=== PATIENT | female | born 1945 | race Caucasian/White ===

== ENCOUNTER → 2016-11-09 | Outpatient (CLI) | payer MEDICARE ==
--- NOTE | 2016-11-09 10:25 | US ---
EXAMINATION TYPE: US kidneys/renal and bladder DATE OF EXAM: 11/09/2016 9:51 AM COMPARISON: CT abdomen December 16, 2012. CLINICAL HISTORY: N18.3 Kidney Disease Stage 3. EXAM MEASUREMENTS: Right Kidney: 9.4 x 4.1 x 4.0 cm Left Kidney: 9.6 x 4.4 x 5.0 cm TECHNOLOGIST IMPRESSION: wnl Right Kidney: No hydronephrosis or masses seen Left Kidney: No hydronephrosis or masses seen Bladder: wnl Bilateral Jets seen: Yes There is no evidence for hydronephrosis at this point in time. No nephrolithiasis is seen. No cynthia s are identified on images saved. The urinary bladder is anechoic. Bilateral ureteral jets are seen . IMPRESSION: No hydronephrosis is evident bilaterally.
== END | disposition home or self-care (01) ==
LOC: RADUSWWP 09:26
PROVIDERS: ATTEND Family Medicine
DX: N18.3 Chronic kidney disease, stage 3 (moderate) (principal)
CPT/HCPCS: 76770

== ENCOUNTER → 2017-05-25 | Outpatient (CLI) | payer MEDICARE ==
--- NOTE | 2017-05-25 10:41 | MM ---
Reason for exam: additional evaluation requested from prior study. Last mammogram was performed 1 year ago. History: Patient is postmenopausal, has history of breast cancer at age 64, and is nulliparous. Family history of premenopausal breast cancer in mother at age 30. Benign MG stereo VAD BX RT of the right breast, December 01, 2015. Malignant right breast needle localzation of the right breast, May 20, 2010. Lumpectomy of the right breast, May 20, 2010. Malignant right mammotome panel of the right breast, May 09, 2010. Radiation therapy of the right breast, 2009. Took estrogen for 2 years beginning at age 54. Took progesterone beginning at age 54. Taking antineoplastic for 2 years beginning at age 65. Physical Findings: Nurse did not find any significant physical abnormalities on exam. MG 3D Diag Mammo W/Cad JOSELYN Bilateral CC and MLO view(s) were taken. Prior study comparison: May 24, 2016, bilateral MG 3d diag mammo w/cad JOSELYN. November 25, 2015, right breast MG 3d diag mammo w/cad RT. There are scattered fibroglandular densities. No suspicious abnormality. Post therapy change in the right breast. No significant new findings when compared with previous films. These results were verbally communicated with the patient and result sheet given to the patient on 05/25/17. ASSESSMENT: Benign, BI-RAD 2 RECOMMENDATION: Follow-up diagnostic mammogram of both breasts in 1 year.
--- NOTE | 2017-05-25 12:27 | BD ---
EXAMINATION TYPE: MG DEXA axial skeleton. DATE OF EXAM: 05/25/2017 COMPARISON: 05.24.2016 CLINICAL HISTORY: Z79.80 POST MENOPAUSAL WITH HRT, N95.1 POST MENOPAUSAL SYMPTOM Height: 63 Weight: 171 FRAX RISK QUESTIONS: Alcohol (3 or more units per day): NO Family History (Parent hip fracture): NO BREAKS Glucocorticoids (More than 3mos): YES (Ex: prednisone, prednisolone, methylprednisolone, dexamethasone, and hydrocortisone). History of Fracture in Adulthood: NO Secondary Osteoporosis: NO 1. Type 1 Diabetes: NO 2. Hyperthyroidism: NO 3. Menopause before 45: NO 4. Malnutrition: NO 5. Chronic liver disease: NO Rheumatoid Arthritis: NO Current Tobacco Use: NO RISK FACTORS HISTORY OF: Family History of Osteoporosis: YES HER PARENTS, NO BROKEN HIPS Active: YES Diet low in dairy products/other sources of calcium: NO Postmenopausal woman: 51 Take estrogen and/or progesterone medications: TOOK HORMONE REPLACEMENTS FOR 2 YRS ONLY....THEN THE B REAST CA Hyperparathyroidism: NO Adrenal Insufficiency: NO MEDICATIONS: Prednisone or other steroids: INHALERS FOR COPD How Lon-7 YRS Thyroid Medications: SYNTHROID 0.1 How Long: OVER 10 YRS Additional Medications: HX OF RADIATION, SYMBACORT,SPIRVIA , PRO AIR,STATIN FOR CHOLESTEROL, BP MEDS, VIT D AND CALCIUM , Additional History: HX OF RT BREAST CANCER, COPD, EXAM MEASUREMENTS: Bone mineral densitometry was performed using the [email or web address] System. Bone mineral density as measured about the Lumbar spine is: ----- L1-L4(G/cm2): 1.306 T Score Values are as follows: ----- L1: 1.0 ----- L2: 2.0 ----- L3: -0.1 ----- L4: 1.0 ----- L1-L4: 1.1 Bone mineral density has: Increased 6.3% since study of: 05.24.2016 Bone mineral density about the R hip (g/cm2): 0.804 Bone mineral density about the L hip (g/cm2): 0.789 T Score values are as follows: -----R Neck: -1.6 -----L Neck: -1.8 -----R Total: -1.6 -----L Total: -1.7 Bone mineral density has: Increased 1.0% since study of: 05.24.2016 FRAX %'S THERE IS A 16.9% CHANCE FOR A MAJOR OSTEOPOROTIC FX AND A 3.5% CHANCE FOR A HIP FX..... PROBABILITY IN 10 YRS TIME. IMPRESSION: Osteopenia (T Score between -2.5 and -1 as noted by T score values There is slightly increased risk of fracture and the patient may be considered for treatment. Re-Screen 2-5 years FOR BOTH OF HER HIPS ONLY. NOTE: T-SCORE=SD OF THE YOUNG ADULT MEAN.
== END | disposition home or self-care (01) ==
LOC: RADMAMWWP 09:43
PROVIDERS: ATTEND Internal Medicine Hematology & Oncology
DX: C50.919 Malignant neoplasm of unspecified site of unspecified female breast (principal); M85.80 Other specified disorders of bone density and structure, unspecified site; N95.1 Menopausal and female climacteric states; Z85.3 Personal history of malignant neoplasm of breast; Z79.890 Hormone replacement therapy
CPT/HCPCS: 77080; G0204; G0279

== ENCOUNTER → 2018-05-29 | Outpatient (CLI) | payer MEDICARE ==
--- NOTE | 2018-05-29 10:43 | MM ---
Reason for exam: additional evaluation requested from prior study. Last mammogram was performed 1 year ago. History: Patient is postmenopausal, has history of breast cancer at age 64, and is nulliparous. Family history of premenopausal breast cancer in mother at age 30. Benign MG stereo VAD BX RT of the right breast, December 01, 2015. Malignant right breast needle localzation of the right breast, May 20, 2010. Lumpectomy of the right breast, May 20, 2010. Malignant right mammotome panel of the right breast, May 09, 2010. Radiation therapy of the right breast, 2009. Took estrogen for 2 years beginning at age 54. Took progesterone beginning at age 54. Taking antineoplastic for 2 years beginning at age 65. Physical Findings: Nurse did not find any significant physical abnormalities on exam. MG 3D Diag Mammo W/Cad JOSELYN Bilateral CC and MLO view(s) were taken. XCCM view(s) were taken of the right breast. Prior study comparison: May 25, 2017, bilateral MG 3d diag mammo w/cad JOSELYN. May 24, 2016, bilateral MG 3d diag mammo w/cad JOSELYN. The breast tissue is heterogeneously dense. This may lower the sensitivity of mammography. Finding: There are grouped/clustered coarse calcifications in the right breast. Right lumpectomy surgical changes. No significant changes in finding since May 25, 2017 and May 24, 2016. These results were verbally communicated with the patient and result sheet given to the patient on 05/29/18. ASSESSMENT: Benign, BI-RAD 2 RECOMMENDATION: Routine screening mammogram of both breasts in 1 year.
== END | disposition home or self-care (01) ==
LOC: RADMAMWWP 08:46
PROVIDERS: ATTEND Family Medicine
DX: Z08 Encounter for follow-up examination after completed treatment for malignant neoplasm (principal); Z85.3 Personal history of malignant neoplasm of breast
CPT/HCPCS: 77066; G0279; 77062

== ENCOUNTER → 2019-06-04 | Outpatient (CLI) | payer MEDICARE ==
--- NOTE | 2019-06-04 09:14 | BD ---
EXAMINATION TYPE: Axial Bone Density DATE OF EXAM: 06/04/2019 COMPARISON: 2017 CLINICAL HISTORY: M 89.9 Height: 5 FT 3 IN Weight: 167 FRAX RISK QUESTIONS: RISK FACTORS HISTORY OF: Active: SOMEWHAT Postmenopausal woman: AROUND 46 NOT REALLY SURE Take estrogen and/or progesterone medications: TOOK HRT [age] Poor Health: SOMEWHAT MEDICATIONS: Thyroid Medications: YES Which medication: LEVOTHYTOXINE How Long: OVER 25 YEARS Additional Medications: LEVOTHYROXINE, ATORVASTATIN, LISINOPRIL, CALCITRIOL,CYMBICORT, PROAIR, ATENDR ITZ, ALBUTEROL, INHALER, VIT D3, FISH OIL Additional History: BREAST CANCER RADIATION EXAM MEASUREMENTS: Bone mineral densitometry was performed using the [employer] System. Bone mineral density as measured about the Lumbar spine is: ----- L1-L4(G/cm2): 1.323 T Score Values are as follows: ----- L2: 2.3 ----- L3: 0.4 ----- L4: 0.8 ----- L1-L4: 1.2 Bone mineral density has: INCREASED 0.8 % since study of: 2017 Bone mineral density about the R hip (g/cm2): 0.785 Bone mineral density about the L hip (g/cm2): 0.765 T Score values are as follows: -----R Neck: -1.8 -----L Neck: -2.0 -----R Total: -1.7 -----L Total: -1.8 Bone mineral density has: DECREASED -1.6 % since study of: 2017 IMPRESSION: Osteopenia (T Score between -2.5 and -1). There is slightly increased risk of fracture and the patient may be considered for treatment. Re-Screen 2-5 years. NOTE: T-SCORE=SD OF THE YOUNG ADULT MEAN.
--- NOTE | 2019-06-05 14:20 | MM ---
Reason for exam: screening (asymptomatic). Last mammogram was performed 1 year ago. History: Patient is postmenopausal, has history of breast cancer at age 64, and is nulliparous. Family history of premenopausal breast cancer in mother at age 30. Benign MG stereo VAD BX RT of the right breast, December 01, 2015. Malignant right breast needle localzation of the right breast, May 20, 2010. Lumpectomy of the right breast, May 20, 2010. Malignant right mammotome panel of the right breast, May 09, 2010. Radiation therapy of the right breast, 2009. Took estrogen for 2 years beginning at age 54. Took progesterone beginning at age 54. Taking antineoplastic for 2 years beginning at age 65. Physical Findings: A clinical breast exam by your physician is recommended on an annual basis and results should be correlated with mammographic findings. MG 3D Screening Mammo W/Cad Bilateral CC and MLO view(s) were taken. XCCM view(s) were taken of the right breast. Prior study comparison: May 29, 2018, bilateral MG 3d diag mammo w/cad JOSELYN. May 25, 2017, bilateral MG 3d diag mammo w/cad JOSELYN. The breast tissue is heterogeneously dense. This may lower the sensitivity of mammography. No suspicious abnormality. Right post therapy change. No significant changes when compared with prior studies. ASSESSMENT: Benign, BI-RAD 2 RECOMMENDATION: Routine screening mammogram of both breasts in 1 year.
== END | disposition home or self-care (01) ==
LOC: RADMAMWWP 07:25
PROVIDERS: ATTEND Family Medicine
DX: Z12.31 Encounter for screening mammogram for malignant neoplasm of breast (principal); M85.80 Other specified disorders of bone density and structure, unspecified site
CPT/HCPCS: 77063; 77067; 77080

== ENCOUNTER 2019-09-02 11:11 | Inpatient (IN) | payer MEDICARE ==
[2019-09-02] MEDS ORDERED: HYDROmorphone 1 MG/ML 1 ML SYRINGE IVP STA (11:23)
[2019-09-02] MEDS ORDERED: ONDANSETRON 4 MG/2 ML VIAL IVP STA (11:23)
--- NOTE | 2019-09-02 11:28 | ED ---
General Adult HPI - General Chief complaint: Fall Stated complaint: Ankle/Lower Leg injury Time Seen by Provider: 09/02/19 11:11 Source: EMS, RN notes reviewed, old records reviewed Mode of arrival: EMS Limitations: no limitations - History of Present Illness Initial comments: This is a 74-year-old female who presents emergency Department with pain to the right ankle. Patient states she was walking her dog and got tangled up in the leash and fell. Patient was unable to ambulate secondary to the open fracture of the right ankle. Per EMS the tibia appeared to be sitting on the medial aspect of the right ankle. Patient had no complaints foot pain patient denied any pain patient denies hip pain. Patient denied any head or neck pain. Patient denies any head or neck injury. Patient denies any upper extremity pain patient denies any back chest or abdomen pain. - Related Data Home Medications Medication Instructions Recorded Confirmed Albuterol Sulfate [Ventolin HFA] 1 - 2 puff INHALATION RT-Q6H PRN 09/02/19 09/02/19 Atorvastatin Calcium [Lipitor] 20 mg PO DAILY 09/02/19 09/02/19 Budesonide [Pulmicort] 0.5 mg INHALATION RT-BID 09/02/19 09/02/19 Budesonide/Formoterol Fumarate 2 puff INHALATION RT-BID PRN 09/02/19 09/02/19 [Symbicort 160-4.5 Mcg Inhaler] Calcitriol 0.25 mcg PO DAILY 09/02/19 09/02/19 Cyanocobalamin (Vitamin B-12) 1,000 mcg PO DAILY 09/02/19 09/02/19 [Vitamin B-12] Ferrous Sulfate [Feosol] 650 mg PO DAILY 09/02/19 09/02/19 Hydrochlorothiazide 12.5 mg PO DAILY 09/02/19 09/02/19 Ipratropium-Albuterol Nebulize 3 ml INHALATION RT-QID 09/02/19 09/02/19 [Duoneb 0.5 mg-3 mg/3 ml Soln] Levothyroxine Sodium [Synthroid] 100 mcg PO DAILY 09/02/19 09/02/19 Lisinopril [Zestril] 10 mg PO BID 09/02/19 09/02/19 [place]-3 Fatty Acids/Fish Oil [Fish 1 cap PO DAILY 09/02/19 09/02/19 Oil 1,000 mg Softgel] Tiotropium 18 Mcg/Puff [Spiriva] 1 puff INHALATION RT-DAILY 09/02/19 09/02/19 traMADol HCL [Ultram] 50 mg PO DAILY PRN 09/02/19 09/02/19 Allergies Allergy/AdvReac Type Severity Reaction Status Date / Time plasma protein fraction Allergy Anaphylaxis Verified 09/02/19 13:25 codeine AdvReac Nausea & Verified 09/02/19 13:25 Vomiting Review of Systems ROS Statement: Those systems with pertinent positive or pertinent negative responses have been documented in the HPI. ROS Other: All systems not noted in ROS Statement are negative. Past Medical History Past Medical History: COPD, Thyroid Disorder Additional Past Medical History / Comment(s): wears home o2, breast cancer, chronic kidney disease History of Any Multi-Drug Resistant Organisms: None Reported Past Surgical History: Tonsillectomy Additional Past Surgical History / Comment(s): D&C, mastectomy on right side Past Psychological History: No Psychological Hx Reported Smoking Status: Former smoker Past Alcohol Use History: None Reported Past Drug Use History: None Reported General Exam - General Exam Comments Initial Comments: GENERAL: Patient is well-developed and well-nourished. Patient is nontoxic and well- hydrated and is in moderate distress. ENT: Neck is soft and supple. No significant lymphadenopathy is noted. Oropharynx is clear. Moist mucous membranes. Neck has full range of motion without eliciting any pain. EYES: The sclera were anicteric and conjunctiva were pink and moist. Extraocular movements were intact and pupils were equal round and reactive to light. Eyelids were unremarkable. PULMONARY: Unlabored respirations. Good breath sounds bilaterally. No audible rales rhonchi or wheezing was noted. CARDIOVASCULAR: There is a regular rate and rhythm without any murmurs gallops or rubs. ABDOMEN: Soft and nontender with normal bowel sounds. No palpable organomegaly was noted. There is no palpable pulsatile mass. SKIN: Skin is clear with no lesions or rashes and otherwise unremarkable. NEUROLOGIC: Patient is alert and oriented x3. Cranial nerves II through XII are grossly intact. Motor and sensory are also intact. Normal speech, volume and content. Symmetrical smile. MUSCULOSKELETAL: Patient is full range of motion of her upper and left lower extremity however she is an open fracture of the right ankle appears to be is protruding from the medial aspect of the right ankle. Patient denies any knee pain on the right or hip pain on the right. Patient has good sensation to all of her toes on the right patient has good DP pulses on the right. LYMPHATICS: No significant lymphadenopathy is noted PSYCHIATRIC: Normal psychiatric evaluation. Limitations: no limitations Course Vital Signs 09/02/19 09/02/19 09/02/19 11:46 11:55 12:00 Pulse Rate 75 70 68 Respiratory 18 18 18 Rate Blood Pressure 132/82 110/90 133/84 O2 Sat by Pulse 96 98 98 Oximetry 09/02/19 09/02/19 09/02/19 12:05 12:10 12:15 Pulse Rate 70 72 61 Respiratory 18 18 18 Rate Blood Pressure 116/68 109/64 93/57 O2 Sat by Pulse 98 98 98 Oximetry 09/02/19 09/02/19 09/02/19 12:30 12:45 13:00 Pulse Rate 60 58 L 74 Respiratory 18 18 16 Rate Blood Pressure 117/70 117/70 127/81 O2 Sat by Pulse 100 100 969 H Oximetry 09/02/19 09/02/19 13:15 13:30 Pulse Rate 77 72 Respiratory 16 16 Rate Blood Pressure 152/89 131/90 O2 Sat by Pulse 96 96 Oximetry Procedures - Orthopedic Joint Reduction Joint #1 Consent Obtained: verbal consent Joint Reduction Location: ankle Technique Used: traction/counter-traction Post-Reduction Neuro Exam: intact Post-Reduction Vascular Exam: intact Post Reduction X-Ray Obtained: Yes Post Reduction X-Ray Results: other (Improved alignment but not fully reduced) Splint Applied: Yes Patient Tolerated Procedure: well - Procedural Sedation Procedural Sedation Start Time: 11:55 Procedural Sedation Stop Time: 12:25 Indications: fracture/dislocation reduction ASA Class: II Mallampati Airway Score: 2 Preparation: hall monitor applied, pulse oximeter, supplemental O2 applied IV Propofol Dose (mgs): 105 Complications: none Patient Tolerated Procedure: well Medical Decision Making - Medical Decision Making EKG shows normal sinus rhythm at 76 bpm NH interval is 144 Neri is 70 QT interval 410 QTC is 461. Patient's EKG shows no ST segment elevation or depression. I spoke with [facility] he agrees to admit the patient may be taking the patient his operating room Patient was irrigated prior to reducing the ankle. I used a liter of fluid. - Lab Data Result diagrams: 09/02/19 12:30 09/02/19 12:30 Lab Results 09/02/19 09/02/19 09/02/19 Range/Units 12:30 12:30 12:30 WBC 8.9 (3.8-10.6) k/uL RBC 4.20 (3.80-5.40) m/uL Hgb 12.8 (11.4-16.0) gm/dL Hct 40.4 (34.0-46.0) % MCV 96.1 (80.0-100.0) fL MCH 30.6 (25.0-35.0) pg MCHC 31.8 (31.0-37.0) g/dL RDW 12.7 (11.5-15.5) % Plt Count 194 (150-450) k/uL Neutrophils % 81 % Lymphocytes % 10 % Monocytes % 6 % Eosinophils % 1 % Basophils % 1 % Neutrophils # 7.2 (1.3-7.7) k/uL Lymphocytes # 0.9 L (1.0-4.8) k/uL Monocytes # 0.5 (0-1.0) k/uL Eosinophils # 0.1 (0-0.7) k/uL Basophils # 0.1 (0-0.2) k/uL PT 9.8 (9.0-12.0) sec INR 0.9 (<1.2) APTT 19.6 L (22.0-30.0) sec Sodium 142 (137-145) mmol/L Potassium 4.2 (3.5-5.1) mmol/L Chloride 108 H (98-107) mmol/L Carbon Dioxide 27 (22-30) mmol/L Anion Gap 7 mmol/L BUN 29 H (7-17) mg/dL Creatinine 1.15 H (0.52-1.04) mg/dL Est GFR (CKD-EPI)AfAm 55 (>60 ml/min/1.73 sqM) Est GFR (CKD-EPI)NonAf 47 (>60 ml/min/1.73 sqM) Glucose 110 H (74-99) mg/dL Calcium 9.3 (8.4-10.2) mg/dL Total Bilirubin 0.4 (0.2-1.3) mg/dL AST 22 (14-36) U/L ALT 36 (9-52) U/L Alkaline Phosphatase 42 (38-126) U/L Total Protein 6.2 L (6.3-8.2) g/dL Albumin 3.6 (3.5-5.0) g/dL Disposition Clinical Impression: Ankle dislocation, Fracture of distal end of tibia with fibula Disposition: ADMITTED IP TO THIS [facility] Time of Disposition: 13:09
[2019-09-02] MEDS ORDERED: PROPOFOL 10 MG/ML 20 ML VIAL IV ONE ×2 (11:49→14:51)
--- NOTE | 2019-09-02 11:50 | XR ---
EXAMINATION TYPE: XR ankle limited RT DATE OF EXAM: 09/02/2019 CLINICAL HISTORY: Pain after falling tree. TECHNIQUE: Frontal and lateral images of the right ankle are obtained. COMPARISON: None. FINDINGS: There is acute comminuted displaced fracture through the lateral malleolus with small 14 x 3 mm fracture fragment noted. There is dislocation at level of ankle mortise which is impacted displ aced and laterally angulated, there is also anteriorly displaced relative to the distal tibia and fib dex. Moderate soft tissue swelling at this level is seen. Moderate inferior calcaneal spur. IMPRESSION: There is an acute displaced at least bimalleolar fracture with mortise disruption. (Initial encountered closed type posttraumatic fracture)
--- NOTE | 2019-09-02 12:28 | XR ---
EXAMINATION TYPE: XR ankle limited RT DATE OF EXAM: 09/02/2019 CLINICAL HISTORY: Fracture dislocation status post reduction. TECHNIQUE: Frontal and lateral images of the right ankle are obtained. COMPARISON: Ankle xray earlier today.. FINDINGS: There is improved alignment of acute comminuted fracture of the lateral malleolus after re duction with persistent impaction of the proximal fracture fragment of the fibula. There is persisten t ankle mortise lateral positioning and angulation relative to the distal tibia though it is improved after attempted reduction. No obvious posterior medial malleolus fracture. Incidental large inferior calcaneal spur. Overlying splint material is now present. IMPRESSION: As above.
--- NOTE | 2019-09-02 12:29 | XR ---
EXAMINATION TYPE: XR chest 1V portable DATE OF EXAM: 09/02/2019 COMPARISON: Chest x-ray December 18, 2014 HISTORY: COPD, presurgical study. TECHNIQUE: Single frontal view of the chest is obtained. FINDINGS: There is chronic parenchymal change without suspicious new focal air space opacity, pleura l effusion, or pneumothorax seen. Persistent left basilar linear scarring. The cardiac silhouette si ze is mildly enlarged on current study. The osseous structures are intact. Surgical clips overlie t he right breast similar to prior. IMPRESSION: Chronic changes without acute pulmonary process.
[2019-09-02 12:40] LABS: Basophils # (A) 0.1 k/uL (0-0.2); Basophils % (A) 1 %; Eosinophils # (A) 0.1 k/uL (0-0.7); Eosinophils % (A) 1 %; HCT 40.4 % (34.0-46.0); HGB 12.8 gm/dL (11.4-16.0); Lymphocytes # (A) 0.9 k/uL (1.0-4.8); Lymphocytes % (A) 10 %; MCH 30.6 pg (25.0-35.0); MCHC 31.8 g/dL (31.0-37.0); MCV 96.1 fL (80.0-100.0); Mean Platelet Volume 7.2; Monocytes # (A) 0.5 k/uL (0-1.0); Monocytes % (A) 6 %; Neutrophils # (A) 7.2 k/uL (1.3-7.7); Neutrophils % (A) 81 %; Platelet Count 194 k/uL (150-450); RDW 12.7 % (11.5-15.5); WBC 8.9 k/uL (3.8-10.6)
[2019-09-02 12:52] LABS: Albumin 3.6 g/dL (3.5-5.0); Calcium 9.3 mg/dL (8.4-10.2); Potassium 4.2 mmol/L (3.5-5.1); Total Bilirubin 0.4 mg/dL (0.2-1.3); Total Protein 6.2 g/dL (6.3-8.2)
[2019-09-02 12:59] LABS: INR 0.9 (<1.2); Prothrombin Time 9.8 sec (9.0-12.0)
[2019-09-02 13:03] LABS: Partial Thromboplastin Time 19.6 sec (22.0-30.0)
[2019-09-02] MEDS ORDERED: DIPH,PERTUS(ACELL)TETVAC-LF 0.5 ML VIAL IM ONE (13:06)
[2019-09-02] MEDS ORDERED: SODIUM CHLORIDE 0.9% 1,000 ML IV ONE (13:09)
[2019-09-02] MEDS ORDERED: NALOXONE 0.4 MG/ML 1 ML VIAL IV PRN (14:05)
[2019-09-02] MEDS ORDERED: DIAZEPAM 5 MG TAB PO PRN (14:05)
[2019-09-02] MEDS ORDERED: MAGNESIUM HYDROXIDE 2,400 MG/10 ML CUP PO PRN (14:05)
[2019-09-02] MEDS ORDERED: HYDROcodone/APAP 5-325MG 1 EACH TAB PO PRN (14:05)
[2019-09-02] MEDS ORDERED: TEMAZEPAM 15 MG CAP PO PRN (14:05)
[2019-09-02] MEDS ORDERED: HYDROmorphone 0.5 MG/0.5 ML SYRINGE IVP PRN ×3 (14:05)
--- NOTE | 2019-09-02 14:05 | P.HPOR ---
History of Present Illness H&P Date: 09/02/19 Chief Complaint: Right open trimalleolar ankle fracture Patient is a 74-year-old pleasant female seen in the emergency department early this afternoon in regards to her open right trimalleolar ankle fracture/dislocation. She states she was walking her dog this morning when she tripped and got tangled up in his leash. It resulted in injury to her right ankle where she was unable to ambulate after the fall. She was transported to the emergency department where it was found to have an open fracture dislocation of the right ankle. An attempt at a reduction was performed in the emergency department and she was placed in a OCL splint. She was also given 1 g of IV Ancef and the wound was irrigated. Tetanus is pending. She continues to have pain as expected at the right ankle. She denies numbness or tingling. She has no calf pain. She states she last ate last evening. She is currently denying fever, chills, chest pain, dizziness, headaches, slurred speech, blurred vision, double vision or shortness of breath. She has no other complaints. Review of Systems All systems: negative Constitutional: Denies chills, Denies fever Eyes: denies blurred vision, denies pain Ears, nose, mouth and throat: Denies headache, Denies sore throat Cardiovascular: Denies chest pain, Denies shortness of breath Respiratory: Denies cough Gastrointestinal: Denies abdominal pain, Denies diarrhea, Denies nausea, Denies vomiting Genitourinary: Denies dysuria, Denies hematuria Musculoskeletal: Denies myalgias Integumentary: Denies pruritus, Denies rash Neurological: Denies numbness, Denies weakness Psychiatric: Denies anxiety, Denies depression Endocrine: Denies fatigue, Denies weight change Past Medical History Past Medical History: COPD, Thyroid Disorder Additional Past Medical History / Comment(s): wears home o2, breast cancer, chronic kidney disease History of Any Multi-Drug Resistant Organisms: None Reported Past Surgical History: Tonsillectomy Additional Past Surgical History / Comment(s): D&C, mastectomy on right side Past Psychological History: No Psychological Hx Reported Smoking Status: Former smoker Past Alcohol Use History: None Reported Past Drug Use History: None Reported Medications and Allergies Home Medications Medication Instructions Recorded Confirmed Type Albuterol Sulfate [Ventolin HFA] 1 - 2 puff INHALATION RT-Q6H PRN 09/02/19 09/02/19 History Atorvastatin Calcium [Lipitor] 20 mg PO DAILY 09/02/19 09/02/19 History Budesonide [Pulmicort] 0.5 mg INHALATION RT-BID 09/02/19 09/02/19 History Budesonide/Formoterol Fumarate 2 puff INHALATION RT-BID PRN 09/02/19 09/02/19 History [Symbicort 160-4.5 Mcg Inhaler] Calcitriol 0.25 mcg PO DAILY 09/02/19 09/02/19 History Cyanocobalamin (Vitamin B-12) 1,000 mcg PO DAILY 09/02/19 09/02/19 History [Vitamin B-12] Ferrous Sulfate [Feosol] 650 mg PO DAILY 09/02/19 09/02/19 History Hydrochlorothiazide 12.5 mg PO DAILY 09/02/19 09/02/19 History Ipratropium-Albuterol Nebulize 3 ml INHALATION RT-QID 09/02/19 09/02/19 History [Duoneb 0.5 mg-3 mg/3 ml Soln] Levothyroxine Sodium [Synthroid] 100 mcg PO DAILY 09/02/19 09/02/19 History Lisinopril [Zestril] 10 mg PO BID 09/02/19 09/02/19 History [place]-3 Fatty Acids/Fish Oil [Fish 1 cap PO DAILY 09/02/19 09/02/19 History Oil 1,000 mg Softgel] Tiotropium 18 Mcg/Puff [Spiriva] 1 puff INHALATION RT-DAILY 09/02/19 09/02/19 History traMADol HCL [Ultram] 50 mg PO DAILY PRN 09/02/19 09/02/19 History Allergies Allergy/AdvReac Type Severity Reaction Status Date / Time plasma protein fraction Allergy Anaphylaxis Verified 09/02/19 13:25 codeine AdvReac Nausea & Verified 09/02/19 13:25 Vomiting Physical Examination Inspection of the right lower extremity shows an open fracture dislocation of the right medial malleolus. The wound measures approximately 3-4 inches at the medial aspect of the ankle. The medial malleolus is protruding through the wound. There is no significant active bleeding. No other wounds identified. Neurovascular status is intact with 2+ dorsalis pedis pulse and less than [address] capillary refill in all digits. She has full motor and sensation throughout all toes. There is no deformity or injury of the proximal right leg including the proximal tibia, knee joint and thigh. Calf is soft and nontender. Ankle range of motion not tested due to obvious fracture/dislocation. She has painless range of motion of the knee joint. Results Prereduction x-rays and postreduction x-rays of the right ankle reviewed. There is a trimalleolar right ankle fracture with continued significant displacement in postreduction. No other fractures identified of the foot or proximal right lower leg. - Labs Labs: Abnormal Lab Results - Last 24 Hours (Table) 09/02/19 09/02/19 09/02/19 Range/Units 12:30 12:30 12:30 Lymphocytes # 0.9 L (1.0-4.8) k/uL APTT 19.6 L (22.0-30.0) sec Chloride 108 H (98-107) mmol/L BUN 29 H (7-17) mg/dL Creatinine 1.15 H (0.52-1.04) mg/dL Glucose 110 H (74-99) mg/dL Total Protein 6.2 L (6.3-8.2) g/dL H & H 09/02/19 Range/Units 12:30 Hgb 12.8 (11.4-16.0) gm/dL Hct 40.4 (34.0-46.0) % Coagulation 09/02/19 Range/Units 12:30 INR 0.9 (<1.2) Result Diagrams: 09/02/19 12:30 09/02/19 12:30 - Diagnostic results Ankle/Foot x-ray: report reviewed, image reviewed Assessment and Plan (1) Fracture of malleolus, bimalleolar, open Narrative/Plan: The patient has been reviewed with Dr. Dru Shetty and Dr. Maurizio Huber. Pl an is to proceed with open reduction internal fixation with instrumentation and irrigation of her open right trimalleolar ankle fracture. The procedure and possible risks been reviewed with the patient. She desires to proceed. The procedure and consent had been ordered. She'll be placed in a bulky splint postoperatively and be nonweightbearing. We'll request medical management by her primary care physician Dr. Wagner. She will continue with routine postop orthopedic protocol. Current Visit: Yes Status: Acute Priority: Medium Code(s): S82.843B - DISPL BIMALLEOL FX UNSP LOWER LEG, INIT FOR OPN FX TYPE I/2 SNOMED Code(s): 66016800 (2) Ankle dislocation Current Visit: Yes Status: Acute Priority: Medium Code(s): S93.06XA - DISLOCATION OF UNSPECIFIED ANKLE JOINT, INITIAL ENCOUNTER SNOMED Code(s): 2691 83014 (3) Fracture of distal end of tibia with fibula Current Visit: Yes Status: Acute Priority: Medium Code(s): S82.309A - UNSP FRACTURE OF LOWER END OF UNSP TIBIA, INIT FOR CLOS FX; S82.839A - OTH FRACTURE OF UPPER AND LOWER END OF UNSP FIBULA, INIT SNOMED Code(s): 914114665 Time with Patient: Greater than 30 (In reviewing patient, examining patient, reviewing x-rays, discussing plan with healthcare team including supervising surgeons and emergency department)
[2019-09-02] MEDS ORDERED: IV FLUID CONTINUATION 450 ML IV ONE (14:21)
[2019-09-02] MEDS ORDERED: MIDAZOLAM 2 MG/2 ML VIAL IV ONE (14:37)
[2019-09-02] MEDS ORDERED: DEXAMETHASONE SOD PHOSPHATE 4 MG/ML 1 ML VIAL ONE (14:51)
[2019-09-02] MEDS ORDERED: SUCCINYLCHOLINE CHLORIDE 100 MG/5 ML SYR IV ONE (14:51)
[2019-09-02] MEDS ORDERED: ePHEDrine SULFATE/0.9% NACL/PF 50 MG/5 ML SYRINGE IV ONE (14:51)
[2019-09-02] MEDS ORDERED: MIDAZOLAM 2 MG/2 ML VIAL ONE (14:51)
[2019-09-02] MEDS ORDERED: fentaNYL (PF) 50 MCG/ML 2 ML AMP ONE (14:51)
[2019-09-02] MEDS ORDERED: ROPIVACAINE 5 MG/ML 30 ML VIAL ONE (14:51)
[2019-09-02] MEDS ORDERED: LIDOCAINE 1% INJ 10MG/ML (20 ML MDV) ONE (14:51)
--- NOTE | 2019-09-02 15:09 | P.ANPRN ---
Procedure Note - Anesthesia - Nerve Block Performed Right Adductor Canal Single Time Out Performed: Yes Date of Procedure: 09/02/19 Procedure Start Time: 14:36 Procedure Stop Time: 14:42 Location of Patient: PreOp Indication: Acute Post-Operative Pain, Requested by Surgeon Sedation Type: Sedate with meaningful contact maintained Preparation: Sterile Prep, Sterile Dressing Position: Supine Catheter: None Needle Types: Pajunk Needle Gauge: 20 Ultrasound used to visualize needle placement: Yes Ultrasound used to observe medication spread: Yes Injectate: 0.5% Ropivacaine (see comment for volume) (15 ml) Blood Aspirated: No Pain Paresthesia on Injection Noted: No Resistance on Injection: Normal Image Stored and Saved: Yes Events: Uneventful and Well Tolerated Right Popliteal Single Time Out Performed: Yes Date of Procedure: 09/02/19 Procedure Start Time: 14:44 Procedure Stop Time: 14:51 Location of Patient: PreOp Indication: Acute Post-Operative Pain, Requested by Surgeon Sedation Type: Sedate with meaningful contact maintained Preparation: Sterile Prep, Sterile Dressing Position: Supine Catheter: None Needle Types: Pajunk Needle Gauge: 20 Ultrasound used to visualize needle placement: Yes Ultrasound used to observe medication spread: Yes Injectate: 0.5% Ropivacaine (see comment for volume) (15 ml) Blood Aspirated: No Pain Paresthesia on Injection Noted: No Resistance on Injection: Normal Image Stored and Saved: Yes Events: Uneventful and Well Tolerated
[2019-09-02] MEDS: IPRATROPIUM-ALBUTEROL 3 ML NEB INHALATION SCH ×2 (15:22→19:23)
[2019-09-02] MEDS ORDERED: LACTATED RINGERS 1,000 ML IV ONE (15:47)
--- NOTE | 2019-09-02 17:07 | P.OP ---
Date of Procedure: 09/02/19 Preoperative Diagnosis: 1. Open right trimalleolar ankle fracture dislocation 2. History of COPD, oxygen dependent Postoperative Diagnosis: 1. Open Type II trimalleolar ankle fracture dislocation 2. COPD, oxygen dependent Procedure(s) Performed: 1. Open reduction and internal fixation right lateral malleolus fracture, nonoperative management medial and posterior malleolus fracture 2. Irrigation and debridement of open ankle fracture 3. Manual application of joint stress by physician for radiography, right ankle 4. Application of short leg splint by physician, right ankle Anesthesia: KENRICK, regional Surgeon: Maurizio Huber Rn Home Care #1: Cici Escoto Estimated Blood Loss (ml): 25 IV fluids (ml): 1,200 Pathology: none sent Condition: stable Disposition: PACU Indications for Procedure: The patient is a very pleasant 74-year-old female with a medical history significant for being home O2 dependent COPD who presented to our ER this morning with an open right ankle fracture. The patient was apparently walking her dog when she got caught in the leash and fell. There is an obvious open wound. She was unable to walk and was brought by EMS to our ER. In the emergency department she was emergently given IV antibiotics due to her open fracture. X-rays were taken, a closed reduction was attempted, and a splint was placed by ER. The patient was admitted under my care. I met with the patient before surgery to discuss the urgent need for irrigating her open fracture and stabilizing the fibula. We discussed the potential risks and complications of surgery including but not limited to risk of anesthesia, superficial infection, deep infection, delayed wound healing, superficial wound necrosis, deep wound necrosis, deep infection, nonunion of her fracture, malunion of her fracture, malreduction of her fracture, posttraumatic arthritis, chronic pain, DVT, PE, other medical complications, and possibly loss of life or limb. The patient understands of all these are the most common complications other less common complications are possible. She provided her verbal and written consent to go forward with surgery. Operative Findings: The patient had an open wound over the medial aspect of the ankle. The deltoid ligament was ruptured in its mid substance. There is a small avulsion fracture off of the medial malleolus which was too small to accommodate fixation and which was sharply excised. There is a small avulsion off of the anterior aspect of the distal fibula at the site of insertion of the anterior inferior tib-fib ligament which was repaired through a drill hole using nonabsorbable suture. The sheath of the posterior tibial tendon was ruptured over the posterior aspect of the medial malleolus. This was repaired using interrupted 0 Vicryl Description of Procedure: The patient was identified in preoperative holding and the correct right ankle was marked with my initials. I reviewed the consent form with the patient and all of her questions were answered. A nerve block was administered by anesthesia. The patient was then brought back to the operating room. She was positioned on the OR table where a general anesthetic was given. The splint over the right ankle was then taken down. There was a large open wound over the medial malleolus and exposed bone, but the skin margins appeared viable and the wound able to be closed. The skin over the lateral malleolus and not appear to be significantly swollen, preventing operative fixation. A tourniquet was applied to the proximal aspect of the right leg. The left leg was secured to the table with foam and tape. A bump was placed under the left buttock internally rotating the leg to neutral. A ramp was placed under the right leg to facilitate imaging. The right leg was then prepped and draped in the standard sterile fashion. A timeout was then performed identifying the correct patient, operative extremity, and procedure. At this point attention was turned to the medial wound over the ankle. There was a large transverse wound over the medial malleolus. There is exposed bone and deltoid ligament. The ankle was subluxed in both the ankle joint and wound was thoroughly irrigated with 3 L of sterile saline using cystoscopy tubing. A small piece of bone was sharply excised from within the mid substance of the deltoid ligament. The sheath of the posterior tibial tendon was found to be ruptured and this was also thoroughly irrigated with sterile saline. The joint was then carefully reduced. Attention was then turned to the lateral aspect of the distal fibula. A longitudinal skin incision was made with a scalpel. Dissection was carried down carefully to the subcutaneous tissue. A branch of the superficial peroneal nerve was identified and carefully retracted. The fracture site was identified and exposed. A gentle reduction was performed using longitudinal traction. The posterior spike of the distal fragment keyed in nicely to the proximal shaft posteriorly. A small [id number] reduction clamp was used to clamp the fracture together. Fluoroscopy was used to verify reduction. There was comminution along the anterior aspect of the distal fragment at the site of insertion of the syndesmosis. There were several loose fracture fragments which were able to del cid in to the gap. A nonlocking 2.7 mm lag screw was placed across the fracture generating excellent compression. A precontoured distal fibular locking plate was then placed over the lateral aspect the distal fibula. Its position was verified with fluoroscopy. 2 nonlocking 3.5 mm screws were placed in the first and third holes of the plate bringing it down nicely to the fibula proximally. Distally a nonlocking 2.7 mm screw was placed bringing the plate d own to the bone distally. An additional 4 locking 2.7 mm screws were placed distally. Due to the patient's grossly unstable ankle fracture and poor bone quality I placed 2 syndesmotic screws for fixation. Nonlocking 3.5 mm screws were placed proximal to the fracture through 4 cortices. A 2.0 mm drill bit was used to create bone tunnels in the distal fragment and 2-0 Ethibond was used to grasp the avulsed syndesmotic fragments and repair them back down to the distal fragment. Both wounds were thoroughly irrigated. Final fluoroscopic images were taken. The mortise view showed the talus concentrically reduced within the ankle mortise. A manual external rotation stress x-ray showed no widening of the medial clear space or incisura. A lateral view of the ankle showed the talar dome and centered under the tibial plafond. The posterior tibial tendon sheath was repaired with interrupted 0 Vicryl. The medial wound was closed carefully using a no touch technique and several interrupted 3-0 Monocryl for the deep subcu and 3-0 nylon Allgower modification of the Donati stitch for the skin. The lateral wound was closed with 0 Vicryl for the fascial layer over the plate, 3-0 Monocryl interrupted stitches for the deep subcu, and 3-0 nylon Algor modification of the Donati stitch for the skin. I verified that all instrument, sponge, and sharp counts were correct. A sterile dressing consisting of Betadine soaked Adaptic, 4 x 4, and web roll was applied. A well-padded bulky Alonso splint was placed with the ankle in neutral. The patient was then awoken from her anesthetic, transferred from an or table to the [facility], and brought to recovery having time procedure well. Cici Escoto PA-C was required as a skilled mechanic's assistant for patient positioning, surgical exposure, retraction, placement of hardware, closure of wound, and application of splint. Plan: The patient is going to be admitted under my care for IV antibiotics for 24 hours, internal medicine for medical management, pain control, and discharge planning. Her open fracture lower choir 24 hours of antibiotics. She is to remain strictly nonweightbearing on her right leg.
[2019-09-02] MEDS: ONDANSETRON 4 MG/2 ML VIAL IVP PRN (19:16)
[2019-09-02] MEDS: LACTATED RINGERS 1,000 ML IV SCH (19:29)
[2019-09-02 20:19] LABS: Basophils % (A) 0 %; Eosinophils % (A) 0 %; HCT 37.8 % (34.0-46.0); HGB 11.6 gm/dL (11.4-16.0); Lymphocytes # (A) 0.5 k/uL (1.0-4.8); Lymphocytes % (A) 6 %; MCH 29.9 pg (25.0-35.0); MCHC 30.9 g/dL (31.0-37.0); MCV 96.9 fL (80.0-100.0); Mean Platelet Volume 7.1; Monocytes # (A) 0.2 k/uL (0-1.0); Monocytes % (A) 2 %; Neutrophils # (A) 8.1 k/uL (1.3-7.7); Neutrophils % (A) 91 %; Platelet Count 170 k/uL (150-450); RDW 12.7 % (11.5-15.5); WBC 8.9 k/uL (3.8-10.6)
[2019-09-02] MEDS: LISINOPRIL 10 MG TAB PO SCH (21:30)
[2019-09-02] MEDS: SENNOSIDES-DOCUSATE SODIUM 1 EACH TAB PO SCH (21:30)
[2019-09-03] MEDS ORDERED: ARTIFICIAL TEARS-HYPROMELLOSE DROPS 15 ML BTL BOTH EYES PRN (04:49)
[2019-09-03] MEDS: LACTATED RINGERS 1,000 ML IV SCH ×2 (04:53→17:43)
[2019-09-03] MEDS ORDERED: SYMBICORT 160-4.5 MCG INHALER INHALATION PRN (05:24)
[2019-09-03] MEDS ORDERED: ALBUTEROL NEBULIZED 2.5 MG/3 ML INHALATION PRN (05:24)
[2019-09-03] MEDS: LEVOTHYROXINE 100 MCG TAB PO SCH (06:36)
--- NOTE | 2019-09-03 07:16 | FL ---
EXAMINATION TYPE: FL guidance operating room, XR ankle complete RT DATE OF EXAM: 09/02/2019 CLINICAL HISTORY: Open reduction internal fixation of the right ankle after ankle fracture TECHNIQUE: Fluoroscopy. COMPARISON: None. FINDINGS: Fluoroscopic guidance was provided during procedure performed by Dr. Huber. A total of 2.01 minute of fluoroscopic time was utilized during the procedure and 3 spot images was acquired. IMPRESSION: As Above.
[2019-09-03] MEDS: MULTIVITAMINS, THERA 1 EACH TAB PO SCH (07:24)
[2019-09-03] MEDS: LISINOPRIL 10 MG TAB PO SCH ×2 (07:25→21:15)
[2019-09-03] MEDS: ATORVASTATIN 20 MG TAB PO SCH (07:25)
[2019-09-03] MEDS: CALCITRIOL 0.25 MCG CAP PO SCH (07:25)
[2019-09-03] MEDS: CYANOCOBALAMIN 500 MCG TAB PO SCH (07:25)
[2019-09-03] MEDS: ENOXAPARIN 30 MG/0.3 ML SYRINGE SQ SCH (07:25)
[2019-09-03] MEDS: FERROUS SULFATE 325 MG TAB PO SCH (07:25)
[2019-09-03] MEDS: IPRATROPIUM-ALBUTEROL 3 ML NEB INHALATION SCH ×4 (07:49→19:25)
[2019-09-03] MEDS ORDERED: NON FORMULARY DRUG (Tiotropium 18 Mcg/Puff 1 PUFF) INHALATION SCH (08:00)
--- NOTE | 2019-09-03 08:49 | P.PN ---
Subjective Progress Note Date: 09/03/19 This patient is a 74-year-old female with past medical history of COPD, chronic kidney disease, and breast cancer that presented to [facility] ED yesterday via EMS for her open right trimalleolar ankle fracture/dislocation. Patient was walking her dog yesterday morning when she tripped not tangled up in the leash. It resulted in an injury to her right ankle, she is unable to ambulate following the fall. She was out in her yard and had to crawl into her home, and call an ambulance. Upon arrival to [facility] ED, the patient was found to have a right open trimalleolar ankle fracture/dislocation. Attempted reduction was performed in the emergency department, the patient was placed in a splint. She is also given 1 g of IV Ancef, the wound was irrigated. The patient was taken to the OR for irrigation and debridement of the right ankle, as well as an open reduction internal fixation of the right lateral malleolus fracture, with non-operative management of the medial malleolus and posterior malleolus fracture with Dr. Huber. Today is postoperative day #1. The patients states she is doing well this morning. Her right ankle is numb, as her nerve block has not yet worn off. She has not yet been up with physical therapy this morning. She tolerated her breakfast well. She has not had a bowel movement post-operatively. She denies chest pain, shortness of breath, nausea, vomiting, fevers, chills. Vital signs stable. Objective - Vital Signs Vital signs: Vital Signs Temp 97.8 F 09/03/19 07:49 Pulse 76 09/03/19 07:58 Resp 18 09/03/19 07:49 BP 116/74 09/03/19 07:49 Pulse Ox 97 09/03/19 07:49 Intake & Output 09/02/19 09/03/19 09/03/19 18:59 06:59 18:59 Intake Total 2100 Output Total 15 100 200 Balance 2084100 -200 Weight 76.657 kg 76.657 kg Intake: IV 1100 Amount of Fluid Infused ( 1000 ml) Output: Urine 100 200 Estimated Blood Loss 15 Other: Voiding Method Bedside Commode # Voids 1 1 - Exam On examination, the patient is sitting up in bed in no apparent distress. She is alert and oriented 3. Her breathing appears nonlabored, Nasal cannula in place. On inspection of the right lower extremity, there is a well-fitting bulky Alonso splint in place. The splint is clean, dry, and intact. The visible portion of the toes are warm and well perfused with brisk capillary refill. On inspection of the left lower extremity, compression cuff is in place. Left calf is soft and nontender to palpation. - Labs CBC & Chem 7: 09/02/19 19:47 09/02/19 12:30 Labs: Abnormal Lab Results - Last 24 Hours (Table) 09/02/19 09/02/19 09/02/19 Range/Units 12:30 12:30 12:30 MCHC (31.0-37.0) g/dL Neutrophils # (1.3-7.7) k/uL Lymphocytes # 0.9 L (1.0-4.8) k/uL APTT 19.6 L (22.0-30.0) sec Chloride 108 H (98-107) mmol/L BUN 29 H (7-17) mg/dL Creatinine 1.15 H (0.52-1.04) mg/dL Glucose 110 H (74-99) mg/dL Total Protein 6.2 L (6.3-8.2) g/dL 09/02/19 Range/Units 19:47 MCHC 30.9 L (31.0-37.0) g/dL Neutrophils # 8.1 H (1.3-7.7) k/uL Lymphocytes # 0.5 L (1.0-4.8) k/uL APTT (22.0-30.0) sec Chloride (98-107) mmol/L BUN (7-17) mg/dL Creatinine (0.52-1.04) mg/dL Glucose (74-99) mg/dL Total Protein (6.3-8.2) g/dL Assessment and Plan Assessment: Right open trimalleolar ankle fracture/dislocation status-post irrigation and debridement, and open reduction internal fixation of the lateral malleolus fracture, with nonoperative management of the medial malleolus and posterior malleolus fractures. Post-operative day 1. Plan: - Strict non weight-bearing of the operative leg. Keep bulky Alonso splint in place. Keep splint clean clean, dry, and intact. - Physical therapy for gait and balance training. - 24 hours of post-operative antibiotics due to open fracture. - Continue pain management. DVT prophylaxis with 30mg Lovenox. - Appreciate internal medicine consultation for perioperative medical manag ement. - Anticipate discharge home within the next 24-48 hours, pending medical clearance. Patient discussed with Dr. Huber.
[2019-09-03] MEDS ORDERED: HYDROCHLOROTHIAZIDE 12.5 MG CAP PO SCH (09:00)
--- NOTE | 2019-09-03 10:40 | P.CONS ---
History of Present Illness - Reason for Consult Consult date: 09/02/19 Preoperative clearance - History of Present Illness Pleasant 74-year-old female with thesignificant past medical history except for COPD and chronic hypercapnic respiratory failure uses 2 L of oxygen at home quit smoking couple years ago came in after a mechanical fall and open right trimalleolar ankle fracture. Medicine was consulted for preoperative clearance. Patient denied any chest pain doesn't have any history of congestive heart failure patient quit smoking does have COPD only risk factor patient is functional person not dependent on ADLs and IADLs. EKG showed normal sinus rhythm without any acute ST-T wave changes or Q waves. And is complaining of pain in the fracture site area. Review of Systems REVIEW OF SYSTEMS: CONSTITUTIONAL: No fever, no malaise, no fatigue. HEENT: No recent visual problems or hearing problems. Denied any sore throat. CARDIOVASCULAR: No chest pain, orthopnea, PND, no palpitations, no syncope. PULMONARY: No shortness of breath, no cough, no hemoptysis. GASTROINTESTINAL: No diarrhea, no nausea, no vomiting, no abdominal pain. NEUROLOGICAL: No headaches, no weakness, no numbness. HEMATOLOGICAL: Denies any bleeding or petechiae. GENITOURINARY: Denies any burning micturition, frequency, or urgency. MUSCULOSKELETAL/RHEUMATOLOGICAL: As mentioned in HPI ENDOCRINE: Denies any polyuria or polydipsia. The rest of the 14-point review of systems is negative. Past Medical History Past Medical History: Cancer, COPD, Hyperlipidemia, Hypertension, Pneumonia, Renal Disease, Thyroid Disorder Additional Past Medical History / Comment(s): wears home o2 (2 L at night and throughout day PRN - more often in summer), breast cancer, chronic kidney disease, walking pnemonia in 2014, 'regular' arthritis in hands and knees History of Any Multi-Drug Resistant Organisms: None Reported Past Surgical History: Breast Surgery, Tonsillectomy Additional Past Surgical History / Comment(s): D&C, lumpectomy on right breast, clips in r breast Past Anesthesia/Blood Transfusion Reactions: No Reported Reaction Past Psychological History: No Psychological Hx Reported Smoking Status: Former smoker Past Alcohol Use History: None Reported Past Drug Use History: None Reported Medications and Allergies Home Medications Medication Instructions Recorded Confirmed Type Albuterol Sulfate [Ventolin HFA] 1 - 2 puff INHALATION RT-Q6H PRN 09/02/19 09/02/19 History Atorvastatin Calcium [Lipitor] 20 mg PO DAILY 09/02/19 09/02/19 History Budesonide [Pulmicort] 0.5 mg INHALATION RT-BID 09/02/19 09/02/19 History Budesonide/Formoterol Fumarate 2 puff INHALATION RT-BID PRN 09/02/19 09/02/19 History [Symbicort 160-4.5 Mcg Inhaler] Calcitriol 0.25 mcg PO DAILY 09/02/19 09/02/19 History Cyanocobalamin (Vitamin B-12) 1,000 mcg PO DAILY 09/02/19 09/02/19 History [Vitamin B-12] Ferrous Sulfate [Feosol] 650 mg PO DAILY 09/02/19 09/02/19 History Hydrochlorothiazide 12.5 mg PO DAILY 09/02/19 09/02/19 History Ipratropium-Albuterol Nebulize 3 ml INHALATION RT-QID 09/02/19 09/02/19 History [Duoneb 0.5 mg-3 mg/3 ml Soln] Levothyroxine Sodium [Synthroid] 100 mcg PO DAILY 09/02/19 09/02/19 History Lisinopril [Zestril] 10 mg PO BID 09/02/19 09/02/19 History [place]-3 Fatty Acids/Fish Oil [Fish 1 cap PO DAILY 09/02/19 09/02/19 History Oil 1,000 mg Softgel] Tiotropium 18 Mcg/Puff [Spiriva] 1 puff INHALATION RT-DAILY 09/02/19 09/02/19 History traMADol HCL [Ultram] 50 mg PO DAILY PRN 09/02/19 09/02/19 History Allergies Allergy/AdvReac Type Severity Reaction Status Date / Time plasma protein fraction Allergy Anaphylaxis Verified 09/02/19 13:25 codeine AdvReac Nausea & Verified 09/02/19 13:25 Vomiting Physical Exam Vitals: Vital Signs Temp Pulse Pulse Pulse Resp BP BP 09/03/19 07:58 76 09/03/19 07:49 97.8 F 74 84 18 116/74 09/03/19 00:15 97.8 F 83 14 115/42 09/02/19 21:15 80 108/70 09/02/19 21:00 80 109/66 09/02/19 20:45 84 101/66 09/02/19 20:30 84 110/73 09/02/19 20:15 85 118/73 09/02/19 20:00 84 123/75 09/02/19 19:45 94 125/76 09/02/19 19:30 72 94 127/80 09/02/19 19:25 69 09/02/19 19:15 97.5 F L 79 15 153/84 09/02/19 18:16 67 18 140/70 09/02/19 18:00 67 18 134/75 09/02/19 17:45 70 18 131/73 09/02/19 17:25 97.5 F L 85 16 127/67 09/02/19 14:13 97.9 F 73 20 139/66 09/02/19 13:30 72 16 131/90 09/02/19 13:15 77 16 152/89 09/02/19 13:00 74 16 127/81 09/02/19 12:45 58 L 18 117/70 09/02/19 12:30 60 18 117/70 09/02/19 12:15 61 18 93/57 09/02/19 12:10 72 18 109/64 09/02/19 12:05 70 18 116/68 09/02/19 12:00 68 18 133/84 09/02/19 11:55 70 18 110/90 09/02/19 11:46 75 18 132/82 Pulse Ox 09/03/19 07:58 09/03/19 07:49 97 09/03/19 00:15 97 09/02/19 21:15 09/02/19 21:00 09/02/19 20:45 09/02/19 20:30 09/02/19 20:15 09/02/19 20:00 09/02/19 19:45 09/02/19 19:30 09/02/19 19:25 09/02/19 19:15 94 L 09/02/19 18:16 95 09/02/19 18:00 97 09/02/19 17:45 97 09/02/19 17:25 93 L 09/02/19 14:13 98 09/02/19 13:30 96 09/02/19 13:15 96 09/02/19 13:00 969 H 09/02/19 12:45 100 09/02/19 12:30 100 09/02/19 12:15 98 09/02/19 12:10 98 09/02/19 12:05 98 09/02/19 12:00 98 09/02/19 11:55 98 09/02/19 11:46 96 Intake and Output 09/02/19 09/03/19 09/03/19 22:59 06:59 14:59 Intake Total 650 200 Output Total 115 200 Balance 535 0 Intake: IV 650 Oral 200 Output: Urine 100 200 Estimated Blood Loss 15 Other: Voiding Method Bedside Commode # Voids 1 1 Weight 76.657 kg PHYSICAL EXAMINATION: GENERAL: The patient is alert and oriented x3, not in any acute distress. Well developed, well nourished. HEENT: Pupils are round and equally reacting to light. EOMI. No scleral icterus. No conjunctival pallor. Normocephalic, atraumatic. No pharyngeal erythema. No thyromegaly. CARDIOVASCULAR: S1 and S2 present. No murmurs, rubs, or gallops. PULMONARY: Chest is clear to auscultation, no wheezing or crackles. ABDOMEN: Soft, nontender, nondistended, normoactive bowel sounds. No palpable organomegaly. MUSCULOSKELETAL: No joint swelling or deformity. EXTREMITIES: No cyanosis, clubbing, or pedal edema. Right ankle has an his bandage NEUROLOGICAL: Gross neurological examination did not reveal any focal deficits. SKIN: No rashes. Results CBC & Chem 7: 09/02/19 19:47 09/02/19 12:30 Labs: Abnormal Lab Results - Last 24 Hours (Table) 09/02/19 09/02/19 09/02/19 Range/Units 12:30 12:30 12:30 MCHC (31.0-37.0) g/dL Neutrophils # (1.3-7.7) k/uL Lymphocytes # 0.9 L (1.0-4.8) k/uL APTT 19.6 L (22.0-30.0) sec Chloride 108 H (98-107) mmol/L BUN 29 H (7-17) mg/dL Creatinine 1.15 H (0.52-1.04) mg/dL Glucose 110 H (74-99) mg/dL Total Protein 6.2 L (6.3-8.2) g/dL 09/02/19 Range/Units 19:47 MCHC 30.9 L (31.0-37.0) g/dL Neutrophils # 8.1 H (1.3-7.7) k/uL Lymphocytes # 0.5 L (1.0-4.8) k/uL APTT (22.0-30.0) sec Chloride (98-107) mmol/L BUN (7-17) mg/dL Creatinine (0.52-1.04) mg/dL Glucose (74-99) mg/dL Total Protein (6.3-8.2) g/dL Assessment and Plan Plan: Preoperative clearance for right ankle surgery: Patient the is low to intermediate risk for surgery but benefited to be overweight the risk and the family is agreeable with the risks and patient is alert okay to go for surgery. No further testing is necessary at this time. -Right ankle fracture patient will undergo open reduction internal fixation patient has an open fracture. -Mild acute renal failure hold off on hydrochlorothiazide, patient will receive IV fluids -COPD without any acute exacerbation and chronic hypercapnic respiratory failure secondary to COPD -Hyperlipidemia -Hypertension: Holding of hydrocodone thiazide -Hypothyroidism For the rest of the chronic medical problems patient will resume on appropriate home medications. DVT prophylaxis and pain management as per primary service
--- NOTE | 2019-09-03 13:13 | CDI ---
Documentation Clarification Form Date: 09/03/2019 1:03:00 PM From: Alexandra Langley CCS, CCDS Admit Date: 09/02/2019 1:09:00 PM Patient Name: Eileen Díaz Visit Number: [id number] Discharge Date: ATTENTION: The Clinical Documentation Specialists (CDI) and [facility] Coding Staff appreciate your assistance in clarifying documentation. Please respond to the clarification below the line at the bottom and electronically sign. The CDI & [facility] Coding staff will review the response and follow-up if needed. Please note: Queries are made part of the Legal Health Record. If you have any questions, please contact the author of this message via ITS. Dr. Rachel Caal: Patient was admitted with a trimalleolar fracture of right ankle, underwent ORIF of same. Per the ED note, the Orthopedic History & Physical, the medical management consult & subsequent progress note: chronic kidney disease is documented without further specificity. History/Risk Factors: COPD, Chronic hypercapnic respiratory failure on home O2 2L, breast cancer, former smoker. Clinical Indicators: Presented after a fall with an open right trimalleolar ankle fracture. Admission Labs: BUN 29^, Cr 1.15^, GFR 47, (one set of labs) Patients Baseline BUN/CR/GFR: unknown or not documented. Treatment: IV Kefzol, IV Dilaudid, IV Zofran, INH, O2 3Lnc, IV fluid 100. In order to capture the severity of condition, please clarify if the condition signifies: CKD Stage 1 (GFR > 90) CKD Stage 2 (GFR 60-89) CKD Stage 3 (GFR 30-59) Other, please specify Unable to determine (Last Revision: December 2017) Unable to determine MTDD
--- NOTE | 2019-09-03 14:24 | P.PN ---
Subjective Patient is admitted for right ankle fracture clinically doing well no overnight events. Clinically doing well at this time. Constitutional: Denied any fatigue denied any fever. Cardio vascular: denied any chest pain, palpitations Gastrointestinal denied any nausea vomiting Pulmonary: Denied any shortness of breath cough Neurologic denied any new focal deficits All inpatient medications were reviewed and appropriate changes in these medications as dictated in the interval history and assessment and plan. Objective - Vital Signs Vital signs: Vital Signs Temp 97.8 F 09/03/19 07:49 Pulse 72 09/03/19 11:34 Resp 18 09/03/19 07:49 BP 116/74 09/03/19 07:49 Pulse Ox 97 09/03/19 07:49 Intake & Output 09/02/19 09/03/19 09/03/19 18:59 06:59 18:59 Intake Total 2100 725 Output Total 15 100 400 Balance 2085 -100 325 Weight 76.657 kg 76.657 kg Intake: IV 1100 Amount of Fluid Infused ( 1000 ml) Oral 725 Output: Urine 100 400 Estimated Blood Loss 15 Other: Voiding Method Bedside Commode # Voids 1 2 - Exam PHYSICAL EXAMINATION: GENERAL: The patient is alert and oriented x3, not in any acute distress. Well developed, well nourished. HEENT: Pupils are round and equally reacting to light. EOMI. No scleral icterus. No conjunctival pallor. Normocephalic, atraumatic. No pharyngeal erythema. No thyromegaly. CARDIOVASCULAR: S1 and S2 present. No murmurs, rubs, or gallops. PULMONARY: Chest is clear to auscultation, no wheezing or crackles. ABDOMEN: Soft, nontender, nondistended, normoactive bowel sounds. No palpable organomegaly. MUSCULOSKELETAL: No joint swelling or deformity. EXTREMITIES: No cyanosis, clubbing, or pedal edema. Right ankle postsurgically packed NEUROLOGICAL: Gross neurological examination did not reveal any focal deficits. SKIN: No rashes. - Labs CBC & Chem 7: 09/02/19 19:47 09/02/19 12:30 Labs: Abnormal Lab Results - Last 24 Hours (Table) 09/02/19 Range/Units 19:47 MCHC 30.9 L (31.0-37.0) g/dL Neutrophils # 8.1 H (1.3-7.7) k/uL Lymphocytes # 0.5 L (1.0-4.8) k/uL Assessment and Plan Plan: -Right ankle fracture patient underwent surgical correction patient is presently in antibiotics his of exposed bone from fracture yesterday. -Mild acute renal failure hold off on hydrochlorothiazide, patient will receive IV fluids, will repeat basic metabolic profile tomorrow -COPD without any acute exacerbation and chronic hypercapnic respiratory failure secondary to COPD -Hyperlipidemia -Hypertension: Holding of hydrochlorothiazide -Hypothyroidism For the rest of the chronic medical problems patient will resume on appropriate home medications. DVT prophylaxis and pain management as per primary service
[2019-09-03] MEDS: ONDANSETRON 4 MG/2 ML VIAL IVP PRN ×2 (16:32→21:59)
[2019-09-03] MEDS: HYDROcodone/APAP 5-325MG 1 EACH TAB PO PRN ×2 (16:32→22:00)
[2019-09-03] MEDS: SODIUM CHLORIDE 0.9% 1,000 ML IV SCH ×2 (16:33→21:18)
[2019-09-03] MEDS: SENNOSIDES-DOCUSATE SODIUM 1 EACH TAB PO SCH (21:15)
[2019-09-04] MEDS: SODIUM CHLORIDE 0.9% 1,000 ML IV SCH (00:53)
[2019-09-04] MEDS: ONDANSETRON 4 MG/2 ML VIAL IVP PRN ×3 (03:30→13:30)
[2019-09-04] MEDS: HYDROcodone/APAP 5-325MG 1 EACH TAB PO PRN ×2 (03:31→13:29)
[2019-09-04] MEDS: LACTATED RINGERS 1,000 ML IV SCH (05:02)
[2019-09-04] MEDS: LEVOTHYROXINE 100 MCG TAB PO SCH (05:03)
[2019-09-04 07:39] VITALS: BP 107/66; RESP 17; TEMP 98.1
[2019-09-04] MEDS: ATORVASTATIN 20 MG TAB PO SCH (07:39)
[2019-09-04] MEDS: FERROUS SULFATE 325 MG TAB PO SCH (07:39)
[2019-09-04] MEDS: CYANOCOBALAMIN 500 MCG TAB PO SCH (07:39)
[2019-09-04] MEDS: CALCITRIOL 0.25 MCG CAP PO SCH (07:40)
[2019-09-04] MEDS: LISINOPRIL 10 MG TAB PO SCH (07:40)
[2019-09-04] MEDS: ENOXAPARIN 30 MG/0.3 ML SYRINGE SQ SCH (07:40)
[2019-09-04 08:52] LABS: Calcium 8.7 mg/dL (8.4-10.2); Potassium 3.6 mmol/L (3.5-5.1)
[2019-09-04] MEDS: IPRATROPIUM-ALBUTEROL 3 ML NEB INHALATION SCH ×2 (09:08→11:59)
[2019-09-04 11:14] LABS: Basophils % (A) 0 %; Eosinophils # (A) 0.1 k/uL (0-0.7); Eosinophils % (A) 1 %; HCT 32.9 % (34.0-46.0); HGB 10.6 gm/dL (11.4-16.0); Lymphocytes # (A) 1.8 k/uL (1.0-4.8); Lymphocytes % (A) 21 %; MCH 31.7 pg (25.0-35.0); MCHC 32.3 g/dL (31.0-37.0); MCV 98.2 fL (80.0-100.0); Mean Platelet Volume 6.8; Monocytes # (A) 0.7 k/uL (0-1.0); Monocytes % (A) 8 %; Neutrophils # (A) 5.6 k/uL (1.3-7.7); Neutrophils % (A) 67 %; Platelet Count 165 k/uL (150-450); RBC 3.35 m/uL (3.80-5.40); RDW 12.8 % (11.5-15.5); WBC 8.4 k/uL (3.8-10.6)
[2019-09-04] MEDS: MULTIVITAMINS, THERA 1 EACH TAB PO SCH (11:49)
[2019-09-04 12:11] VITALS: PULSE 90
--- NOTE | 2019-09-04 13:11 | P.DS ---
Providers Date of admission: 09/02/19 13:09 Expected date of discharge: 09/04/19 Attending physician: Maurizio Huber Consults: 09/02/19 14:05 Consult Physician Routine Consulting Provider: Panchito Christianson Consult Reason/Comments: medical management Do you want consulting provider notified?: Yes Primary care physician: [facility] Course: This patient is a 74-year-old female with past medical history of COPD, chronic kidney disease, and breast cancer that presented to [facility] ED on 09/02/19 via EMS for a right ankle injury. X-rays and examination in the emergency department revealed an open right trimalleolar ankle fracture/dislocation. Patient received IV antibiotics, the wound was irrigated, and an attempt at reduction and splinting was made. The patient was admitted under the care of Dr. Huber, with a consult placed to internal medicine for medical management. The patient was taken to the operative room for irrigation and debridement of the right ankle, as well as an open reduction internal fixation of the right lateral malleolus fracture, with non-operative management of the medial malleolus and posterior malleolus fracture on 09/02/19 Dr. Huber. The procedure was performed without complication or sequelae. The patient's vital signs, labs are stable on postoperative day #2. The patient is examined bedside this morning. She states her pain is well- controlled. She is doing well. She notes mild nausea after taking oral [place], although denies vomiting. She is tolerating her diet well. She has not yet had a bowel movement, although denies abdominal pain, she is passing gas. She denies chest pain, shortness of breath, nausea, vomiting, numbness or tingling. On examination, the patient is sitting up in bed in no apparent distress. She is alert and oriented 3. Her breathing appears nonlabored, Nasal cannula in place. On inspection of the right lower extremity, there is a well-fitting bulky Alonso splint in place. The splint is clean, dry, and intact. The visible portion of the toes are warm and well perfused with brisk capillary refill. Patient is able to move toes without issue. No pain with PROM of the toes. On inspection of the left lower extremity, compression cuff is in place. Left calf is soft and nontender to palpation. Patient is discharged home with health services today, pending medical clearance. Patient Condition at Discharge: Fair Plan - Discharge Summary Discharge Rx Participant: No New Discharge Prescriptions: New Aspirin 325 mg PO DAILY #14 tab Docusate [Colace] 100 mg PO BID #60 capsule Hydrocodone/Acetaminophen [[place] 5-325] 1 tab PO Q4-6H PRN #40 tab PRN Reason: Pain Cholecalciferol (Vitamin D3) [Vitamin D3] 2,000 unit PO DAILY #30 capsule Ondansetron [Zofran] 4 mg PO Q8HR PRN #20 tab PRN Reason: Nausea And Vomiting Continue Albuterol Sulfate [Ventolin HFA] 1 - 2 puff INHALATION RT-Q6H PRN PRN Reason: Shortness Of Breath Stroud-3 Fatty Acids/Fish Oil [Fish Oil 1,000 mg Softgel] 1 cap PO DAILY Ferrous Sulfate [Iron (65 MG Elemental)] 650 mg PO DAILY Cyanocobalamin (Vitamin B-12) [Vitamin B-12] 1,000 mcg PO DAILY Tiotropium 18 Mcg/Puff [Spiriva] 1 puff INHALATION RT-DAILY Ipratropium-Albuterol Nebulize [Duoneb 0.5 mg-3 mg/3 ml Soln] 3 ml INHALATION RT-QID Budesonide [Pulmicort] 0.5 mg INHALATION RT-BID Budesonide/Formoterol Fumarate [Symbicort 160-4.5 Mcg Inhaler] 2 puff INHALATION RT-BID PRN PRN Reason: COPD traMADol HCL [Ultram] 50 mg PO DAILY PRN PRN Reason: Pain Levothyroxine Sodium [Synthroid] 100 mcg PO DAILY Calcitriol 0.25 mcg PO DAILY Atorvastatin Calcium [Lipitor] 20 mg PO DAILY Changed Lisinopril [Zestril] 10 mg PO DAILY #0 Discontinued Hydrochlorothiazide 12.5 mg PO DAILY Discharge Medication List Albuterol Sulfate [Ventolin HFA] 1 - 2 puff INHALATION RT-Q6H PRN 09/02/19 [History] Atorvastatin Calcium [Lipitor] 20 mg PO DAILY 09/02/19 [History] Budesonide [Pulmicort] 0.5 mg INHALATION RT-BID 09/02/19 [History] Budesonide/Formoterol Fumarate [Symbicort 160-4.5 Mcg Inhaler] 2 puff INHALATION RT-BID PRN 09/02/19 [History] Calcitriol 0.25 mcg PO DAILY 09/02/19 [History] Cyanocobalamin (Vitamin B-12) [Vitamin B-12] 1,000 mcg PO DAILY 09/02/19 [History] Ferrous Sulfate [Iron (65 MG Elemental)] 650 mg PO DAILY 09/02/19 [History] Ipratropium-Albuterol Nebulize [Duoneb 0.5 mg-3 mg/3 ml Soln] 3 ml INHALATION RT-QID 09/02/19 [History] Levothyroxine Sodium [Synthroid] 100 mcg PO DAILY 09/02/19 [History] Str[place]-3 Fatty Acids/Fish Oil [Fish Oil 1,000 mg Softgel] 1 cap PO DAILY 09/02/19 [History] Tiotropium 18 Mcg/Puff [Spiriva] 1 puff INHALATION RT-DAILY 09/02/19 [History] traMADol HCL [Ultram] 50 mg PO DAILY PRN 09/02/19 [History] Aspirin 325 mg PO DAILY #14 tab 09/04/19 [Rx] Cholecalciferol (Vitamin D3) [Vitamin D3] 2,000 unit PO DAILY #30 capsule 09/04/19 [Rx] Docusate [Colace] 100 mg PO BID #60 capsule 09/04/19 [Rx] Hydrocodone/Acetaminophen [[place] 5-325] 1 tab PO Q4-6H PRN #40 tab 09/04/19 [Rx] Lisinopril [Zestril] 10 mg PO DAILY #0 09/04/19 [Rx] Ondansetron [Zofran] 4 mg PO Q8HR PRN #20 tab 09/04/19 [Rx] Follow up Appointment(s)/Referral(s): [facility], [NON-STAFF] - Nghia Wagner DO [Primary Care Provider] - 09/08/19 1:20 pm (with Maurizio Solis MD [Medical Doctor] - 09/15/19 9:30 am Patient Instructions/Handouts: ORIF of a Leg Fracture (DC) Activity/Diet/Wound Care/Special Instructions: -Strict non-weight bearing on your operative leg. Do not remove your splint; Keep splint clean, dry, and intact -Use crutches, knee scooter, or a walker to ambulate after surgery. -Elevate and ice operative leg to help reduce swelling and control pain. -Take pain medications as prescribed. Take Colace as a stool softener. Take aspirin as prescribed for blood clot prevention. - Patient requires a bedside commode due to being room confined, and a wheelchair due to non-weight bearing status. -Follow-up appointment with Dr. Huber in the office in 2 weeks. -Call the office with any questions or concerns, Discharge Disposition: HOME WITH HOME HEALTH SERVICES
--- NOTE | 2019-09-04 14:26 | P.PN ---
Subjective Patient is admitted for right ankle fracture clinically doing well no overnight events. Clinically doing well at this time. 09/04/2019 Patient's serum creatinine improved patient is being discharged today feeling much better. Patient remains hypotensive, hydrochlorothiazide is being discontinued and I am changing the dose of lisinopril to 10 mg daily. Patient was asked to maintain blood pressure diary, cutting down her lisinopril to 10 mg daily and patient was asked to hold this medication today and tomorrow and can started from the after. Constitutional: Denied any fatigue denied any fever. Cardio vascular: denied any chest pain, palpitations Gastrointestinal denied any nausea vomiting Pulmonary: Denied any shortness of breath cough Neurologic denied any new focal deficits All inpatient medications were reviewed and appropriate changes in these medications as dictated in the interval history and assessment and plan. Objective - Vital Signs Vital signs: Vital Signs Temp 98.1 F 09/04/19 07:00 Pulse 90 09/04/19 12:10 Resp 17 09/04/19 07:45 BP 107/66 09/04/19 07:00 Pulse Ox 95 09/04/19 07:00 Intake & Output 09/03/19 09/04/19 09/04/19 18:59 06:59 18:59 Intake Total 725 Output Total 400 Balance 325 Intake: Oral 725 Output: Urine 400 Other: Voiding Method Bedside Commode Bedside Commode # Voids 3 1 - Exam PHYSICAL EXAMINATION: GENERAL: The patient is alert and oriented x3, not in any acute distress. Well developed, well nourished. HEENT: Pupils are round and equally reacting to light. EOMI. No scleral icterus. No conjunctival pallor. Normocephalic, atraumatic. No pharyngeal erythema. No thyromegaly. CARDIOVASCULAR: S1 and S2 present. No murmurs, rubs, or gallops. PULMONARY: Chest is clear to auscultation, no wheezing or crackles. ABDOMEN: Soft, nontender, nondistended, normoactive bowel sounds. No palpable organomegaly. MUSCULOSKELETAL: No joint swelling or deformity. EXTREMITIES: No cyanosis, clubbing, or pedal edema. Right ankle postsurgically packed NEUROLOGICAL: Gross neurological examination did not reveal any focal deficits. SKIN: No rashes. - Labs CBC & Chem 7: 09/04/19 07:55 09/04/19 07:55 Labs: Abnormal Lab Results - Last 24 Hours (Table) 09/04/19 09/04/19 Range/Units 07:55 07:55 RBC 3.35 L (3.80-5.40) m/uL Hgb 10.6 L (11.4-16.0) gm/dL Hct 32.9 L (34.0-46.0) % Carbon Dioxide 32 H (22-30) mmol/L BUN 18 H (7-17) mg/dL Glucose 112 H (74-99) mg/dL Assessment and Plan Plan: -Right ankle fracture patient underwent surgical correction in his being discharged today -Mild acute renal failure improved with IV fluids -COPD without any acute exacerbation and chronic hypercapnic respiratory failure secondary to COPD -Hyperlipidemia -Hypertension: Further management and discharge medications as mentioned in the interval history -Hypothyroidism Patient can be discharged from medical perspective
== END 2019-09-04 14:21 | disposition home health service (06) | DRG 493 ==
LOC: EC 11:11 → 4MS4W 13:09 → 4SSUR 14:03
PROVIDERS: ADMIT Orthopaedic Surgery; ATTEND Orthopaedic Surgery
PROC: 0LQS0ZZ Repair Right Ankle Tendon, Open Approach (ICD-10-PCS; principal; 2019-09-02 09:40)
PROC: 0QSJ04Z Reposition Right Fibula with Internal Fixation Device, Open Approach (ICD-10-PCS; principal; 2019-09-02 09:40)
DX: S82.851B Displaced trimalleolar fracture of right lower leg, initial encounter for open fracture type I or II (principal); J96.12 Chronic respiratory failure with hypercapnia; N17.9 Acute kidney failure, unspecified; Y93.K1 Activity, walking an animal; E03.9 Hypothyroidism, unspecified; E78.5 Hyperlipidemia, unspecified; G89.29 Other chronic pain; I12.9 Hypertensive chronic kidney disease with stage 1 through stage 4 chronic kidney disease, or unspecified chronic kidney disease; J44.9 Chronic obstructive pulmonary disease, unspecified; N18.9 Chronic kidney disease, unspecified; Z79.51 Long term (current) use of inhaled steroids; Z79.890 Hormone replacement therapy; Z79.899 Other long term (current) drug therapy; Z85.3 Personal history of malignant neoplasm of breast; Z87.891 Personal history of nicotine dependence; Z99.81 Dependence on supplemental oxygen; Z88.5 Allergy status to narcotic agent; Z88.8 Allergy status to other drugs, medicaments and biological substances; I95.9 Hypotension, unspecified
CPT/HCPCS: 27788; 36415; 64447; 71045; 76942; 80048; 80053; 82306; 85025; 85610; 85730; 90471; 90715; 94640; 96365; 96375; 99152; 99153; 99285

== ENCOUNTER → 2020-03-01 | Outpatient (CLI) | payer MEDICARE ==
--- NOTE | 2020-03-01 11:55 | XR ---
EXAMINATION TYPE: XR abdomen 1V DATE OF EXAM: 03/01/2020 Comparison: 12/02/2012 Clinical History: 74-year-old female [id number] CONSTIPATION Findings: Supine imaging limited for assessment of free air. 5 mm calcification projecting in the right mid abdomen. Only mild stool in the right side of the abdo men. Air in the rectum. Suspect some pelvic phlebolith. Impression: Mild stool in the right side of the abdomen. 5 mm calcification on the right, probable nonobstructive right renal calculus.
== END | disposition home or self-care (01) ==
LOC: RADXRYALE 11:29
PROVIDERS: ATTEND Physician Assistant Medical
DX: K59.00 Constipation, unspecified (principal)
CPT/HCPCS: 74018

== ENCOUNTER → 2020-03-24 | Day surgery (SDC) | payer MEDICARE ==
[2020-03-22 15:33] VITALS: BMI 30.2
[~2020-03-24] MED LIST: LACTATED RINGERS 1,000 ML IV SCH; LIDOCAINE 1% INJ 10MG/ML (20 ML MDV) ONE; PROPOFOL 10 MG/ML 20 ML VIAL IV ONE
[2020-03-24 10:35] VITALS: RESP 16; TEMP 97.4
--- NOTE | 2020-03-24 11:24 | P.PCN ---
Date of Procedure: 03/24/20 Procedure(s) Performed: BRIEF HISTORY: Patient is a 74-year-old pleasant female scheduled for an elective colonoscopy as a part of evaluation of change in bowel habits for the last 1 month duration. PROCEDURE PERFORMED: Colonoscopy with snare polypectomy. PREOPERATIVE DIAGNOSIS: Change in bowel habits. IV sedation per Anesthesia. PROCEDURE: After informed consent was obtained, the patient, was brought into the endoscopy unit. IV sedation was administered by Anesthesia under continuous monitoring. Digital rectal examination was normal. Initially the Olympus CF-160 flexible video colonoscope was then inserted in the rectum, gradually advanced into the cecum without any difficulty. Careful examination was performed as the scope was gradually being withdrawn. Ileocecal valve and the appendiceal orifice were visualized and appeared normal. Prep was excellent. Mucosa of the cecum, ascending colon, transverse colon appeared normal. In the descending colon there was a 5-6 mm polyp removed by snare polypectomy. Rest of the, descending colon, sigmoid colon, and rectum appeared normal. Retroflexion was performed in the rectum and no lesions were seen. The patient tolerated the procedure well. IMPRESSION: 5-6 mm sessile descending colon polyp status post polypectomy Rest of the colon appeared normal RECOMMENDATIONS: Findings of this examination were discussed with the patient as well as her family. She was advised to follow with the biopsy results. If the biopsy shows an adenoma she can have a repeat colonoscopy in 5 years.
[2020-03-24 11:44] VITALS: BP 119/71; PULSE 72
== END ==
LOC: ORWHC2ENDO 09:20
PROVIDERS: ATTEND Internal Medicine Gastroenterology
DX: D12.4 Benign neoplasm of descending colon (principal); I10 Essential (primary) hypertension; E78.5 Hyperlipidemia, unspecified; J45.909 Unspecified asthma, uncomplicated; E07.9 Disorder of thyroid, unspecified; Z88.5 Allergy status to narcotic agent; Z79.51 Long term (current) use of inhaled steroids; Z79.890 Hormone replacement therapy; Z79.899 Other long term (current) drug therapy; Z99.81 Dependence on supplemental oxygen
CPT/HCPCS: 88305; 45385; J2001; J2704

== ENCOUNTER → 2020-07-29 | Outpatient (CLI) | payer MEDICARE ==
--- NOTE | 2020-07-29 09:58 | MM ---
Reason for exam: additional evaluation requested from prior study. Last mammogram was performed 1 year and 2 months ago. History: Patient is postmenopausal, has history of breast cancer at age 64, and is nulliparous. Family history of premenopausal breast cancer in mother at age 30. Benign MG stereo VAD BX RT of the right breast, December 01, 2015. Malignant right breast needle localzation of the right breast, May 20, 2010. Lumpectomy of the right breast, May 20, 2010. Malignant right mammotome panel of the right breast, May 09, 2010. Radiation therapy of the right breast, 2009. Took estrogen for 2 years beginning at age 54. Took progesterone beginning at age 54. Taking antineoplastic for 2 years beginning at age 65. Physical Findings: Nurse did not find any significant physical abnormalities on exam. MG 3D Diag Mammo W/Cad JOSELYN Bilateral CC and MLO view(s) were taken. Prior study comparison: June 04, 2019, bilateral MG 3d screening mammo w/cad. May 29, 2018, bilateral MG 3d diag mammo w/cad JOSELYN. There are scattered fibroglandular densities. Benign appearing bilateral calcifications. Asymmetric breast tissue right breast post surgical change. No significant new findings when compared with previous films. These results were verbally communicated with the patient and result sheet given to the patient on 07/29/20. ASSESSMENT: Benign, BI-RAD 2 RECOMMENDATION: Routine screening mammogram of both breasts in 1 year.
== END | disposition home or self-care (01) ==
LOC: RADMAMWWP 08:08
PROVIDERS: ATTEND Physician Assistant Medical
DX: Z08 Encounter for follow-up examination after completed treatment for malignant neoplasm (principal); Z85.3 Personal history of malignant neoplasm of breast
CPT/HCPCS: 77066; G0279; 77062

== ENCOUNTER → 2021-04-27 | Outpatient (CLI) | payer MEDICARE ==
--- NOTE | 2021-04-27 11:00 | ECHOF ---
Referral Reason:R06.02 SOB MEASUREMENTS -------- HEIGHT: 162.6 cm WEIGHT: 83.0 kg BP: RVIDd: 3.8 cm (< 3.3) IVSd: 1.2 cm (0.6 - 1.1) LVIDd: 3.3 cm (3.9 - 5.3) LVPWd: 1.3 cm (0.6 - 1.1) IVSs: 1.6 cm LVIDs: 2.3 cm LVPWs: 1.4 cm LAESV Index (A-L): 18.16 ml/m Ao Diam: 2.1 cm (2.0 - 3.7) AV Cusp: 1.4 cm (1.5 - 2.6) MV EXCURSION: 13.189 mm (> 18.000) MV EF SLOPE: 56 mm/s (70 - 150) MV E Rolf: 0.79 m/s MV DecT: 312 ms MV A Rolf: 1.07 m/s MV E/A Ratio: 0.74 RAP: 5.00 mmHg RVSP: 42.07 mmHg FINDINGS -------- Sinus rhythm. This was a technically adequate study. The left ventricular size is normal. There is mild concentric left ventricular hypertrophy. Overa ll left ventricular systolic function is normal with, an EF between 55 - 60 %. The diastolic fillin g pattern is normal for the age of the patient 10.64. The right ventricle is mild to moderately enlarged. Normal LA size by volume 22+/-6 ml/m2. The right atrium is mildly enlarged. Interatrial and interventricular septum intact. There is no evidence of aortic regurgitation. There is no evidence of aortic stenosis. No mitral regurgitation. Mild tricuspid regurgitation present. There is mild to moderate pulmonary hypertension. The right ventricular systolic pressure, as measured by Doppler, is 42.07mmHg. There is no pulmonic regurgitation present. The aortic root size is normal. Normal inferior vena cava with normal inspiratory collapse consistent with estimated right atrial pre ssure of 5 mmHg. There is a small pericardial effusion is located near the right ventricle. CONCLUSIONS -------- 1. The left ventricular size is normal. 2. There is mild concentric left ventricular hypertrophy. 3. Overall left ventricular systolic function is normal with, an EF between 55 - 60 %. 4. The right ventricle is mild to moderately enlarged. 5. The right atrium is mildly enlarged. 6. Mild tricuspid regurgitation present. 7. There is mild to moderate pulmonary hypertension. 8. The right ventricular systolic pressure, as measured by Doppler, is 42.07mmHg. 9. There is a small pericardial effusion is located near the right ventricle. PATENT EXAMINER: Carol Ann Winslow RDCS
== END | disposition home or self-care (01) ==
LOC: RADECHMAIN 07:58
PROVIDERS: ATTEND Family Medicine
DX: I07.1 Rheumatic tricuspid insufficiency (principal); I27.20 Pulmonary hypertension, unspecified; I31.3 Pericardial effusion (noninflammatory)
CPT/HCPCS: 93306

== ENCOUNTER 2021-04-28 00:40 | Emergency (ER) | payer MEDICARE ==
[2021-04-28 00:50] VITALS: TEMP 97.6
[2021-04-28] MEDS ORDERED: IPRATROPIUM-ALBUTEROL 3 ML NEB INHALATION STA ×2 (01:06→01:22)
--- NOTE | 2021-04-28 01:19 | XR ---
EXAMINATION TYPE: XR chest 1V portable DATE OF EXAM: 04/28/2021 COMPARISON: 09/02/2019 HISTORY: Short of breath TECHNIQUE: Single view FINDINGS: Heart is normal. There is minimal subsegmental atelectasis left midlung. There is no heart failure. There is no pleural effusion. There are surgical clips over the right breast. IMPRESSION: Minimal left side subsegmental atelectasis or scarring without change. No heart failure.
[2021-04-28] MEDS ORDERED: methylPREDNISolone SOD SUCCI 125 MG/2 ML VIAL IV STA (01:22)
[2021-04-28] MEDS ORDERED: SODIUM CHLORIDE 0.9% 1,000 ML IV STA (01:22)
--- NOTE | 2021-04-28 01:24 | ED ---
SOB HPI - General Chief Complaint: Shortness of Breath Stated Complaint: MIMI Time Seen by Provider: 04/28/21 00:46 Source: patient, family, RN notes reviewed, old records reviewed Mode of arrival: wheelchair Limitations: no limitations - History of Present Illness Initial Comments: This is a 75-year-old female to the ER for evaluation. Patient is having significant shortness of breath history of COPD with complicated recent medical history she was told she had some fluid or effusion one of her lungs with increasing shortness of breath that maybe was due to Pneumonia or heart failure has been on Lasix as well as antibiotics with no improvement. Shortness of breath is worse today. No significant exposure travel history, no chest pain MD Complaint: shortness of breath, anxiety -: week(s) Severity: moderate Severity scale (1-10): 7 Quality: other (No pain) Consistency: constant Improves With: oxygen, rest Worsens With: exertion, movement Known History Of: COPD Context: recent URI, anxiety, recent illness Associated Symptoms: denies other symptoms - Related Data Home Medications Medication Instructions Recorded Confirmed Albuterol Sulfate [Ventolin HFA] 1 - 2 puff INHALATION RT-Q6H PRN 09/02/19 03/22/20 Atorvastatin Calcium [Lipitor] 20 mg PO DAILY 09/02/19 03/22/20 Budesonide [Pulmicort] 0.5 mg INHALATION RT-BID PRN 09/02/19 03/22/20 Budesonide/Formoterol Fumarate 2 puff INHALATION RT-BID 09/02/19 03/22/20 [Symbicort 160-4.5 Mcg Inhaler] Ipratropium-Albuterol Nebulize 3 ml INHALATION RT-QID PRN 09/02/19 03/22/20 [Duoneb 0.5 mg-3 mg/3 ml Soln] Levothyroxine Sodium [Synthroid] 112 mcg PO DAILY 09/02/19 03/22/20 amLODIPine [Norvasc] 5 mg PO BID 03/22/20 03/22/20 lisinopriL [Zestril] 20 mg PO BID 03/22/20 03/22/20 Allergies Allergy/AdvReac Type Severity Reaction Status Date / Time plasma protein fraction Allergy Anaphylaxis Verified 04/28/21 00:49 codeine AdvReac Nausea & Verified 04/28/21 00:49 Vomiting Review of Systems ROS Statement: Those systems with pertinent positive or pertinent negative responses have been documented in the HPI. ROS Other: All systems not noted in ROS Statement are negative. 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 History of Any Multi-Drug Resistant Organisms: None Reported Past Surgical History: Breast Surgery, Tonsillectomy Additional Past Surgical History / Comment(s): D&C, lumpectomy on right breast, clips in r breast Past Anesthesia/Blood Transfusion Reactions: No Reported Reaction Past Psychological History: No Psychological Hx Reported Smoking Status: Former smoker Past Alcohol Use History: None Reported Past Drug Use History: None Reported General Exam Limitations: no limitations General appearance: alert, in no apparent distress, anxious Head exam: Present: atraumatic, normocephalic, normal inspection Eye exam: Present: normal appearance, PERRL, EOMI. Absent: scleral icterus, conjunctival injection, periorbital swelling ENT exam: Present: normal exam, mucous membranes moist Neck exam: Present: normal inspection. Absent: tenderness, meningismus, lymphadenopathy Respiratory exam: Present: respiratory distress, wheezes. Absent: rales, rhonchi, stridor Cardiovascular Exam: Present: regular rate, normal rhythm, normal heart sounds. Absent: systolic murmur, diastolic murmur, rubs, gallop, clicks GI/Abdominal exam: Present: soft, normal bowel sounds. Absent: distended, tenderness, guarding, rebound, rigid Extremities exam: Present: normal inspection, full ROM, normal capillary refill. Absent: tenderness, pedal edema, joint swelling, calf tenderness Back exam: Present: normal inspection Neurological exam: Present: alert, oriented X3, CN II-XII intact Psychiatric exam: Present: normal affect, normal mood Skin exam: Present: warm, dry, intact, normal color. Absent: rash Course Vital Signs 04/28/21 04/28/21 00:44 01:38 Temperature 97.6 F Pulse Rate 90 87 Respiratory 32 H 25 H Rate Blood Pressure 150/82 O2 Sat by Pulse 95 Oximetry - Reevaluation(s) Reevaluation #1: 04/28/21 01:24 Medical record is reviewed Reevaluation #2: 04/28/21 02:49 Patient reevaluated with right respiratory status significantly improved, denying complaints. Reevaluation #3: 04/28/21 02:49 Patient informed results questions answered, prefers discharge Medical Decision Making - Medical Decision Making 75 female to the ER for COPD exacerbation, patient symptoms are improved here in the ER feels good for discharge home - Lab Data Result diagrams: 04/28/21 01:04/28/21 01:29 Lab Results 04/28/21 04/28/21 04/28/21 Range/Units 01: 01: 01:29 WBC 9.9 (3.8-10.6) k/uL RBC 4.45 (3.80-5.40) m/uL Hgb 13.4 (11.4-16.0) gm/dL Hct 43.1 (34.0-46.0) % MCV 96.9 (80.0-100.0) fL MCH 30.1 (25.0-35.0) pg MCHC 31.1 (31.0-37.0) g/dL RDW 13.4 (11.5-15.5) % Plt Count 247 (150-450) k/uL MPV 7.4 Neutrophils % 62 % Lymphocytes % 27 % Monocytes % 6 % Eosinophils % 2 % Basophils % 1 % Neutrophils # 6.2 (1.3-7.7) k/uL Lymphocytes # 2.7 (1.0-4.8) k/uL Monocytes # 0.6 (0-1.0) k/uL Eosinophils # 0.2 (0-0.7) k/uL Basophils # 0.1 (0-0.2) k/uL Sodium 141 (137-145) mmol/L Potassium 4.3 (3.5-5.1) mmol/L Chloride 106 (98-107) mmol/L Carbon Dioxide 28 (22-30) mmol/L Anion Gap 7 mmol/L BUN 23 H (7-17) mg/dL Creatinine 0.99 (0.52-1.04) mg/dL Est GFR (CKD-EPI)AfAm 65 (>60 ml/min/1.73 sqM) Est GFR (CKD-EPI)NonAf 57 (>60 ml/min/1.73 sqM) Glucose 135 H (74-99) mg/dL Plasma Lactic Acid Dexter 0.8 (0.7-2.0) mmol/L Calcium 9.7 (8.4-10.2) mg/dL Magnesium 2.2 (1.6-2.3) mg/dL Total Bilirubin 0.2 (0.2-1.3) mg/dL AST 21 (14-36) U/L ALT 22 (4-34) U/L Alkaline Phosphatase 48 (38-126) U/L Creatine Kinase 115 (30-135) U/L NT-Pro-B Natriuret Pep pg/mL Total Protein 6.8 (6.3-8.2) g/dL Albumin 4.4 (3.5-5.0) g/dL 04/28/21 Range/Units 01:29 WBC (3.8-10.6) k/uL RBC (3.80-5.40) m/uL Hgb (11.4-16.0) gm/dL Hct (34.0-46.0) % MCV (80.0-100.0) fL MCH (25.0-35.0) pg MCHC (31.0-37.0) g/dL RDW (11.5-15.5) % Plt Count (150-450) k/uL MPV Neutrophils % % Lymphocytes % % Monocytes % % Eosinophils % % Basophils % % Neutrophils # (1.3-7.7) k/uL Lymphocytes # (1.0-4.8) k/uL Monocytes # (0-1.0) k/uL Eosinophils # (0-0.7) k/uL Basophils # (0-0.2) k/uL Sodium (137-145) mmol/L Potassium (3.5-5.1) mmol/L Chloride (98-107) mmol/L Carbon Dioxide (22-30) mmol/L Anion Gap mmol/L BUN (7-17) mg/dL Creatinine (0.52-1.04) mg/dL Est GFR (CKD-EPI)AfAm (>60 ml/min/1.73 sqM) Est GFR (CKD-EPI)NonAf (>60 ml/min/1.73 sqM) Glucose (74-99) mg/dL Plasma Lactic Acid Dexter (0.7-2.0) mmol/L Calcium (8.4-10.2) mg/dL Magnesium (1.6-2.3) mg/dL Total Bilirubin (0.2-1.3) mg/dL AST (14-36) U/L ALT (4-34) U/L Alkaline Phosphatase (38-126) U/L Creatine Kinase (30-135) U/L NT-Pro-B Natriuret Pep 64 pg/mL Total Protein (6.3-8.2) g/dL Albumin (3.5-5.0) g/dL - Radiology Data Radiology results: report reviewed (Chest x-ray does have left pleural effusion but no significant findings), image reviewed Disposition Clinical Impression: Acute exacerbation of chronic obstructive pulmonary disease Disposition: HOME SELF-CARE Condition: Good Instructions (If sedation given, give patient instructions): Acute Bronchitis (ED), Chronic Bronchitis (ED) Is patient prescribed a controlled substance at d/c from ED?: No Referrals: Nghia Wagner DO [Primary Care Provider] - 1-2 days
[2021-04-28 01:52] LABS: Basophils # (A) 0.1 k/uL (0-0.2); Basophils % (A) 1 %; Eosinophils # (A) 0.2 k/uL (0-0.7); Eosinophils % (A) 2 %; HCT 43.1 % (34.0-46.0); HGB 13.4 gm/dL (11.4-16.0); Lymphocytes # (A) 2.7 k/uL (1.0-4.8); Lymphocytes % (A) 27 %; MCH 30.1 pg (25.0-35.0); MCHC 31.1 g/dL (31.0-37.0); MCV 96.9 fL (80.0-100.0); Mean Platelet Volume 7.4; Monocytes # (A) 0.6 k/uL (0-1.0); Monocytes % (A) 6 %; Neutrophils # (A) 6.2 k/uL (1.3-7.7); Neutrophils % (A) 62 %; Platelet Count 247 k/uL (150-450); RBC 4.45 m/uL (3.80-5.40); RDW 13.4 % (11.5-15.5); WBC 9.9 k/uL (3.8-10.6)
[2021-04-28 02:05] LABS: Albumin 4.4 g/dL (3.5-5.0); Calcium 9.7 mg/dL (8.4-10.2); Magnesium 2.2 mg/dL (1.6-2.3); Potassium 4.3 mmol/L (3.5-5.1); Total Bilirubin 0.2 mg/dL (0.2-1.3); Total Protein 6.8 g/dL (6.3-8.2)
[2021-04-28 02:48] LABS: INR 0.9 (<1.2); Partial Thromboplastin Time 20.4 sec (22.0-30.0); Prothrombin Time 9.6 sec (9.0-12.0)
[2021-04-28 03:11] VITALS: BP 132/86; PULSE 92; RESP 16
== END 2021-04-28 03:14 | disposition home or self-care (01) ==
LOC: EC 00:40
DX: J44.1 Chronic obstructive pulmonary disease with (acute) exacerbation (principal); E78.5 Hyperlipidemia, unspecified; I12.9 Hypertensive chronic kidney disease with stage 1 through stage 4 chronic kidney disease, or unspecified chronic kidney disease; F41.9 Anxiety disorder, unspecified; N18.9 Chronic kidney disease, unspecified; Z87.891 Personal history of nicotine dependence; Z85.3 Personal history of malignant neoplasm of breast; Z79.51 Long term (current) use of inhaled steroids; Z88.5 Allergy status to narcotic agent
CPT/HCPCS: 36415; 94640; 83880; 80053; 82550; 83605; 83735; 84484; 85025; 85610; 85730; 71045; 99285; 96374; J2930

== ENCOUNTER → 2021-07-25 | Outpatient (CLI) | payer MEDICARE ==
[2021-07-25 16:22] LABS: ABG Base Excess 4.5 mmol/L; ABG HCO3 29 mmol/L (21-25); ABG Oxygen Saturation 92.9 % (94-97); ABG PCO2 45 mmHg (35-45); ABG PH 7.43 (7.35-7.45); ABG PO2 63 mmHg (83-108); Allen Test Performed? Yes
== END | disposition home or self-care (01) ==
LOC: LABWHC1 15:41
PROVIDERS: ATTEND Internal Medicine Critical Care Medicine
DX: J44.9 Chronic obstructive pulmonary disease, unspecified (principal)
CPT/HCPCS: 82805

== ENCOUNTER → 2021-08-11 | Outpatient (CLI) | payer MEDICARE ==
--- NOTE | 2021-08-12 08:52 | MM ---
Reason for exam: additional evaluation requested from prior study. Last mammogram was performed 1 year ago. History: Patient is postmenopausal, has history of breast cancer at age 64, and is nulliparous. Family history of premenopausal breast cancer in mother at age 30. Benign MG stereo VAD BX RT of the right breast, December 01, 2015. Malignant right breast needle localzation of the right breast, May 20, 2010. Lumpectomy of the right breast, May 20, 2010. Malignant right mammotome panel of the right breast, May 09, 2010. Radiation therapy of the right breast, 2009. Took estrogen for 2 years beginning at age 54. Took progesterone beginning at age 54. Taking antineoplastic for 2 years beginning at age 65. Physical Findings: Nurse did not find any significant physical abnormalities on exam. MG 3D Diag Mammo W/Cad JOSELYN Bilateral CC and MLO view(s) were taken. Prior study comparison: July 29, 2020, bilateral MG 3d diag mammo w/cad JOSELYN. June 04, 2019, bilateral MG 3d screening mammo w/cad. There are scattered fibroglandular densities. Post surgical changes right breast. No significant new findings when compared with previous films. These results were verbally communicated with the patient and result sheet given to the patient on 08/11/21. ASSESSMENT: Benign, BI-RAD 2 RECOMMENDATION: Routine screening mammogram of both breasts in 1 year.
== END | disposition home or self-care (01) ==
LOC: RADMAMWWP 14:49
PROVIDERS: ATTEND Family Medicine
DX: N64.89 Other specified disorders of breast (principal); Z85.3 Personal history of malignant neoplasm of breast; Z80.3 Family history of malignant neoplasm of breast; Z78.0 Asymptomatic menopausal state
CPT/HCPCS: 77066; G0279; 77062

== ENCOUNTER → 2021-08-18 | Outpatient (CLI) | payer MEDICARE ==
--- NOTE | 2021-08-18 15:48 | CT ---
EXAMINATION TYPE: CT chest wo con DATE OF EXAM: 08/18/2021 COMPARISON: None HISTORY: COPD [place] protocol CT DLP: 1129.20 mGycm, Automated exposure control for dose reduction was used. CONTRAST: None TECHNIQUE: Axial images were obtained at 1 mm thick sections at 10 mm intervals. This will limit po rtions of the examination which may not be visualized within the [id number]. Images were obtained in the prone and supine views. FINDINGS: Portion of the thyroid visualized is normal. Emphysematous changes are evident slightly greater on the right. Some mild peribronchial thickening i s noted. There is an irregular infiltrate through the lingula. Correlate for atelectasis. Pneumonia c ould be considered. Chronic changes may be present. Milder similar infiltrate is to the right posteri or lateral lung base. No significant change between prone and supine imaging is evident. No enlarged mediastinal or hilar adenopathy is evident. The ascending aorta diameter at the level o f the main pulmonary artery is 3.6 cm. The main pulmonary artery diameter at the bifurcation is 2.7 cm. Small pericardial effusion is present. Mild coronary artery calcifications noted. Limited CT sections are obtained through the upper abdomen. There is a 0.6 cm nonobstructing right re nal stone. IMPRESSIONS: 1. Some mild streak infiltrates are within the lingula to a lesser degree right lower lobe. Infectiou s etiology, atelectasis could be considered. Scarring could be present. 2. Nonobstructing right renal stone 3. Small pericardial effusion
== END ==
LOC: RADCTMAIN 14:21
PROVIDERS: ATTEND Internal Medicine Critical Care Medicine
DX: J44.9 Chronic obstructive pulmonary disease, unspecified (principal); N20.0 Calculus of kidney; I31.3 Pericardial effusion (noninflammatory); R91.8 Other nonspecific abnormal finding of lung field
CPT/HCPCS: 71250

== ENCOUNTER 2021-12-16 08:39 | Day surgery (SDC) | payer MEDICARE ==
[2021-12-14 13:47] VITALS: BMI 31.7
[~2021-12-16 08:39] MED LIST changes: +DEXAMETHASONE SOD PHOSPHATE 4 MG/ML 1 ML VIAL IV ONE; -LIDOCAINE 1% INJ 10MG/ML (20 ML MDV) ONE; +MIDAZOLAM 2 MG/2 ML VIAL IV PRN; +ONDANSETRON 4 MG/2 ML VIAL IVP ONE; -PROPOFOL 10 MG/ML 20 ML VIAL IV ONE; +fentaNYL (PF) 50 MCG/ML 2 ML AMP IV PRN
[2021-12-16 09:28] LABS: Glucose,Whole Blood 129 mg/dL (75-99)
[2021-12-16] MEDS ORDERED: HYDROCORTISONE SUCCINATE 100 MG/2 ML VIAL IVP ONE (09:52)
[2021-12-16] MEDS ORDERED: MIDAZOLAM 2 MG/2 ML VIAL IVP ONE ×2 (09:53)
[2021-12-16] MEDS ORDERED: ROPIVACAINE 5 MG/ML 30 ML VIAL ONE (10:01)
[2021-12-16] MEDS ORDERED: ePHEDrine 50 MG/ML 1 ML VIAL ONE (10:01)
[2021-12-16] MEDS ORDERED: PROPOFOL 10 MG/ML 20 ML VIAL IV ONE (10:01)
[2021-12-16] MEDS ORDERED: fentaNYL (PF) 50 MCG/ML 2 ML AMP ONE (10:01)
[2021-12-16] MEDS ORDERED: SODIUM CHLORIDE 0.9% (PF) 10 ML VIAL ONE (10:01)
[2021-12-16] MEDS ORDERED: MIDAZOLAM 2 MG/2 ML VIAL ONE (10:01)
[2021-12-16] MEDS ORDERED: LIDOCAINE 1% INJ 10MG/ML (20 ML MDV) ONE (10:01)
--- NOTE | 2021-12-16 11:15 | P.OP ---
Date of Procedure: 12/16/21 Preoperative Diagnosis: 1. Symptomatic hardware, right ankle 2. History of open ankle fracture, right ankle Postoperative Diagnosis: Same Procedure(s) Performed: Hardware removal deep, right ankle Anesthesia: KENRICK, regional Surgeon: Maurizio Huber Medical Coding Instructor #1: Cici Escoto Estimated Blood Loss (ml): 25 IV fluids (ml): 1,000 Pathology: none sent Condition: stable Disposition: PACU Indications for Procedure: The patient is very pleasant 76-year-old female with multiple medical problems including requiring oxygen for COPD who sustained an open right ankle fracture in 2019. She underwent operative fixation. She went on to heal her fracture but had symptomatic hardware. She met with me in the office. Her x-rays showed a healed ankle fracture. We discussed elective removal of the hardware. She understands the potential risks and Occasions including but not limited to risks from anesthesia, superficial infection, deep infection, displacement of her ankle fracture or ankle mortise, postoperative fracture, continued or worsened pain, progression of ankle arthritis, DVT, PE, other medical complications, to satisfaction with surgery, and possibly loss of life or limb. 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 She provided her consent to go forward with surgery. Description of Procedure: The patient was identified in preoperative holding. The correct right leg was marked with my initials. I reviewed the consent form with the patient and all of her questions were answered. A block was placed by anesthesia. The patient was then brought back to the operating room. She was transferred onto the OR table where a general anesthetic and preoperative antibiotics were given. A tourniquet was applied to the proximal aspect of the right leg. Nonsterile drapes were applied. All bony prominences were well-padded. Right leg was then prepped and draped in the standard sterile fashion. Prior to starting surgery timeout was performed identifying the correct patient, operative extremity, and procedure. The patient's leg was then elevated, exsanguinated with an Esmarch bandage, and the tourniquet was inflated to 250 mmHg. I began by outlining the lateral scar over the distal fibula. Skin incision with a scalpel. Dissection was carried down through the subcutaneous tissue directly onto the plate. The plate was circumferentially exposed and all screws were removed. The plate was then carefully removed from the bone. The screw tracks were carefully debrided with a curet. Final fluoroscopic images were taken verifying removal of the hardware. The more inferior syndesmotic screws broken was completely embedded within bone. The ankle mortise was atomic. A manual external rotation stress x-ray showed no widening of the incisura or medial clear space. A true lateral the ankle was obtained. The wound was then thoroughly irrigated and closed in layers. A sterile dressing was applied. Tourniquet was let down. The patient was carefully transferred off of the operating room table after the drapes were removed. She was extubated and brought to recovery having tolerated the procedure well. Next Cici Escoto was required as a skilled teaching assistant. Plan: The patient is going to discharge home as an outpatient. She can weight- bear as tolerated on her right leg in a boot. Based on preoperative risk stratification she'll be treated with aspirin 325 mg daily for 2 weeks for DVT prophylaxis. He'll follow-up in the office in 2 weeks for weightbearing x-rays of the ankle and a wound check.
[2021-12-16] MEDS ORDERED: LACTATED RINGERS 1,000 ML IV ONE (11:16)
--- NOTE | 2021-12-16 11:17 | FL ---
EXAMINATION TYPE: FL guidance operating room, XR ankle limited RT DATE OF EXAM: 12/16/2021 CLINICAL HISTORY: Right ankle pain. Prior surgery for displaced fracture 2018. TECHNIQUE: Fluoroscopy. Limited intraoperative views right ankle. COMPARISON: Right ankle x-ray September 02, 2019.. FINDINGS: Fluoroscopic guidance was provided during metallic hardware surgical removal procedure per formed by Dr. Huber. A total of 45 seconds of fluoroscopic time was utilized during the procedure and 3 spot images was acquired. Intraoperative images acquired show removal of lateral fixating plate and fixating screws through the lateral malleolus with exception of single a residual screw fragment inferiorly through the distal t ibial metadiaphysis IMPRESSION: As Above.
[2021-12-16 11:35] VITALS: TEMP 97
--- NOTE | 2021-12-16 12:34 | P.ANPRN ---
Procedure Note - Anesthesia - Nerve Block Performed Right Popliteal Single Time Out Performed: Yes (951) Date of Procedure: 12/16/21 Procedure Start Time: 09:52 Procedure Stop Time: 09:55 Location of Patient: PreOp Indication: Acute Post-Operative Pain, Requested by Surgeon Specifically requested for management of pain by DrAdiel: Maurizio Huber Sedation Type: Sedate with meaningful contact maintained Preparation: Sterile Prep Position: Left Lateral Catheter: None Needle Types: Pajunk Needle Gauge: 21 Ultrasound used to visualize needle placement: Yes Ultrasound used to observe medication spread: Yes Injectate: 0.5% Ropivacaine (see comment for volume) (15cc + 5cc nacl pf) Blood Aspirated: No Pain Paresthesia on Injection Noted: No Resistance on Injection: Normal Image Stored and Saved: Yes Events: Uneventful and Well Tolerated
--- NOTE | 2021-12-16 12:35 | P.ANPRN ---
Procedure Note - Anesthesia - Nerve Block Performed Right Adductor Canal Single Time Out Performed: Yes (951) Date of Procedure: 12/16/21 Procedure Start Time: 09:56 Procedure Stop Time: 09:58 Location of Patient: PreOp Indication: Acute Post-Operative Pain, Requested by Surgeon Specifically requested for management of pain by DrAdiel: Maurizio Huber Sedation Type: Sedate with meaningful contact maintained Preparation: Sterile Prep Position: Supine Catheter: None Needle Types: Pajunk Needle Gauge: 21 Ultrasound used to visualize needle placement: Yes Ultrasound used to observe medication spread: Yes Injectate: 0.5% Ropivacaine (see comment for volume) (15cc + 5cc nacl pf) Blood Aspirated: No Pain Paresthesia on Injection Noted: No Resistance on Injection: Normal Image Stored and Saved: Yes Events: Uneventful and Well Tolerated
[2021-12-16 13:57] VITALS: BP 138/74; PULSE 86; RESP 14
== END 2021-12-16 13:51 | disposition home or self-care (01) ==
LOC: OR 08:39
PROVIDERS: ATTEND Orthopaedic Surgery
DX: S82.891A Other fracture of right lower leg, initial encounter for closed fracture (principal); T84.84XA Pain due to internal orthopedic prosthetic devices, implants and grafts, initial encounter
CPT/HCPCS: 20680; 64447; 64445; 76942; 73600; J2250; J1100; J1720; J0690; J2405; J2001; J3010; J2795; J2704; J1790

== ENCOUNTER → 2022-03-28 | Outpatient (CLI) | payer MEDICARE ==
--- NOTE | 2022-03-29 09:16 | US ---
EXAMINATION TYPE: US kidneys/renal and bladder DATE OF EXAM: 03/28/2022 COMPARISON: NONE CLINICAL HISTORY: N18.31 STAGE 3 KIDNEY DISEASE. CKD EXAM MEASUREMENTS: Right Kidney: 9.2 x 3.9 x 3.6 cm Left Kidney: 9.3 x 5.0 x 4.3 cm Right Kidney: dense echogenic focus = 0.8cm Left Kidney: no evidence of hydronephrosis Bladder: not fully distended Bilateral Jets seen: no IMPRESSION: Nonobstructing right renal stone.
== END | disposition home or self-care (01) ==
LOC: RADUSWWP 15:51
PROVIDERS: ATTEND Internal Medicine Nephrology
DX: N18.31 Chronic kidney disease, stage 3a (principal); N20.0 Calculus of kidney
CPT/HCPCS: 76770

== ENCOUNTER 2022-03-31 09:16 | Day surgery (SDC) | payer MEDICARE ==
[~2022-03-31 09:16] MED LIST changes: -DEXAMETHASONE SOD PHOSPHATE 4 MG/ML 1 ML VIAL IV ONE; -MIDAZOLAM 2 MG/2 ML VIAL IV PRN; -ONDANSETRON 4 MG/2 ML VIAL IVP ONE; -fentaNYL (PF) 50 MCG/ML 2 ML AMP IV PRN
[2022-03-31 10:01] VITALS: RESP 16; TEMP 96.8
[2022-03-31] MEDS ORDERED: PROPOFOL 10 MG/ML 20 ML VIAL IV ONE (11:01)
[2022-03-31] MEDS ORDERED: LIDOCAINE 2% INJ 20 MG/ML (2 ML VIAL) ONE (11:01)
--- NOTE | 2022-03-31 11:22 | P.PCN ---
Date of Procedure: 03/31/22 Procedure(s) Performed: BRIEF HISTORY: Patient is a 76-year-old pleasant white female scheduled for an elective colonoscopy as a part of evaluation of Hemoccult-positive stool. PROCEDURE PERFORMED: Colonoscopy with snare polypectomy. PREOPERATIVE DIAGNOSIS: Hemoccult-positive stool. IV sedation per Anesthesia. PROCEDURE: After informed consent was obtained, the patient, was brought into the endoscopy unit. IV sedation was administered by Anesthesia under continuous monitoring. Digital rectal examination was normal. Initially the Olympus CF-160 flexible video colonoscope was then inserted in the rectum, gradually advanced into the cecum without any difficulty. Careful examination was performed as the scope was gradually being withdrawn. Ileocecal valve and the appendiceal orifice were visualized and appeared normal. Prep was excellent. Mucosa of the cecum, ascending colon, appeared normal. In the hepatic flexure there was a 1 cm polyp removed by snare polypectomy. Rest of the transverse colon, descending colon, sigmoid colon, and rectum appeared normal. Retroflexion was performed in the rectum and no lesions were seen. The patient tolerated the procedure well. IMPRESSION: 1 cm hepatic flexure polyp status post polypectomy Rest of the colon appeared normal RECOMMENDATIONS: Findings of this examination were discussed with the patient as well as her family. She was advised to follow with the biopsy results. If the biopsy revealed adenoma she can have a repeat colonoscopy in 3 years..
[2022-03-31 11:41] VITALS: BP 143/85; PULSE 78
== END 2022-03-31 12:12 | disposition home or self-care (01) ==
LOC: ORWHC2ENDO 09:16
PROVIDERS: ATTEND Internal Medicine Gastroenterology
DX: D12.3 Benign neoplasm of transverse colon (principal); I10 Essential (primary) hypertension; E78.5 Hyperlipidemia, unspecified; J44.9 Chronic obstructive pulmonary disease, unspecified; Z99.81 Dependence on supplemental oxygen; E03.9 Hypothyroidism, unspecified; N28.9 Disorder of kidney and ureter, unspecified; Z88.5 Allergy status to narcotic agent; Z88.8 Allergy status to other drugs, medicaments and biological substances; Z79.890 Hormone replacement therapy; Z79.899 Other long term (current) drug therapy; Z79.52 Long term (current) use of systemic steroids; Z87.891 Personal history of nicotine dependence; Z80.3 Family history of malignant neoplasm of breast; Z80.6 Family history of leukemia
CPT/HCPCS: 88305; 45385; J2704; J2001

== ENCOUNTER → 2022-08-14 | Outpatient (CLI) | payer MEDICARE ==
--- NOTE | 2022-08-14 15:50 | BD ---
EXAMINATION TYPE: Axial Bone Density DATE OF EXAM: 08/14/2022 COMPARISON: 06-04-2019 CLINICAL HISTORY: 77 years year old Female. ICD-10 CODE: M899 DISORDER OF BONE Height: 62.5 Weight: 196.2 FRAX RISK QUESTIONS: Alcohol (3 or more units per day): NO Family History (Parent hip fracture): NO Glucocorticoids (More than 3mos): YES PREDNISONE History of Fracture in Adulthood: ANKLE Secondary Osteoporosis: 1. Type 1 Diabetes: NO 2. Hyperthyroidism: NO 3. Menopause before 45: NO 4. Malnutrition: NO 5. Chronic liver disease: NO Rheumatoid Arthritis: NO Current Tobacco Use: NO RISK FACTORS HISTORY OF: Hip Fracture (Right/Left): NO Spine Fracture: NO History of Wrist Fracture: NO Surgery to Spine/Hip(right/left)/Wrist (right/left): NO Family History of Osteoporosis: NO Active: NO Diet low in dairy products/other sources of calcium: YES Postmenopausal woman: YES Take estrogen and/or progesterone medications: NO Lost more than 2 inches in height since high school: YES Frequent falls: NO Poor Health: NO Hyperparathyroidism: NO Adrenal Insufficiency: NO MEDICATIONS: Prednisone or other steroids: YES How Long: PAST 4 YEARS Thyroid Medications: YES Which medication: LEVOTHYROXIN How Long: PAST 10 YEARS Osteoporosis Medications: NO Additional Medications: BP MEDS, CHOLESTEROL MEDS, LEVOTHYROXIN, VIT D, VIT B12, BREAST CANCER WITH RADIATION 2009 EXAM MEASUREMENTS: Bone mineral densitometry was performed using the [employer] System. Bone mineral density as measured about the Lumbar spine is: ----- L1-L4(G/cm2):1.270 T Score Values are as follows: ----- L1: 0.8 ----- L2: 1.7 ----- L3: 0.1 ----- L4: 0.2 ----- L1-L4: 0.7 Bone mineral density has: DECREASED -3.8 % since study of: 06/04/2019 Bone mineral density about the R hip (g/cm2): 0.859 Bone mineral density about the L hip (g/cm2): 0.726 T Score values are as follows: -----R Neck: -1.3 -----L Neck: -2.2 -----R Total: -1.0 -----L Total: -1.9 Bone mineral density has: INCREASED 5.2 % since study of: 06/04/2019 FRAX%s: The graph provided illustrates a 31.3% chance for a major osteoporotic fx and a 9.7% chance f or the hips probability for fx in 10 years time. IMPRESSION: Osteopenia (T Score between -2.5 and -1) remains present. There is slightly increased risk of fracture and the patient may be considered for treatment. Re-Screen 2-5 years. NOTE: T-SCORE=SD OF THE YOUNG ADULT MEAN.
--- NOTE | 2022-08-15 09:08 | MM ---
Reason for Exam: Screening (asymptomatic). Last screening mammogram was performed 12 month(s) ago. Patient History: Menarche at age 13. Patient has no children. Postmenopausal. Breast cancer, age 64. Estrogen for 2 years from age 54 until age 56. Progesterone, from age 54 until age 56. 05/20/2010, Lumpectomy on the Right side. 12/01/2015, Benign Core Biopsy on the right side. 05/20/2010, Malignant Excisional Biopsy on the right side. 05/09/2010, Malignant Core Biopsy on the right side. 2009, Radiation Therapy on the right side. Mother had breast cancer, age 30. Prior Study Comparison: 06/04/2019 Bilateral Screening Mammogram, [facility]. 07/29/2020 Bilateral Diagnostic Mammogram, [facility]. 08/11/2021 Bilateral Diagnostic Mammogram, [facility]. Tissue Density: There are scattered fibroglandular densities. Findings: Analyzed By CAD. There is no suspicious group of microcalcifications or new suspicious mass in either breast. Benign-appearing bilateral calcifications. Similar postsurgical changes of the right breast. No significant change from prior exams. Overall Assessment: Benign, BI-RAD 2 Management: Screening Mammogram of both breasts in 1 year. A clinical breast exam by your physician is recommended on an annual basis and results should be correlated with mammographic findings. Electronically signed and approved by: Michael Estes D.O.
== END | disposition home or self-care (01) ==
LOC: RADMAMWWP 14:23
PROVIDERS: ATTEND Family Medicine
DX: Z12.31 Encounter for screening mammogram for malignant neoplasm of breast (principal); M85.89 Other specified disorders of bone density and structure, multiple sites; Z78.0 Asymptomatic menopausal state; Z80.3 Family history of malignant neoplasm of breast
CPT/HCPCS: 77063; 77067; 77080

== ENCOUNTER → 2022-10-17 | Outpatient (CLI) | payer MEDICARE ==
--- NOTE | 2022-10-17 13:14 | CT ---
INDICATION: Patient age:Female; 77 years old; Reason for study: J44.9 CHRONIC OBSTRUCTIVE PULMONARY DISEASE, UNSPE; [facility]. COMPARISON: CT chest 08/18/2021 TECHNIQUE: Multiple thin axial images were obtained through the chest at selected intervals. Prone and supine in spiratory along with supine expiratory images were submitted for review. Please note that due to inte rval acquisition images of the entire lung parenchyma is not evaluated, therefore small nodular densi ties may not be visualized. Welda protocol. Evaluation of vascular structures, viscera and lymphatic s is limited due to lack of intravenous contrast administration. One or more CT dose reduction strate gies were utilized during this examination. Total DLP 1559 mGycm. FINDINGS: LUNGS: Mild centrilobular emphysematous changes redemonstrated. Patchy airspace opacity within the ri ght mid lung bilaterally and right lower lobe likely consistent atelectasis. There is no evidence of interstitial thickening, significant groundglass opacity, honeycombing or architectural distortion in the lungs. No bronchiectasis. No acute area of infiltrative or consolidative change. LARGE AIRWAYS: Central airways are patent. No dynamic airway collapse on expiratory imaging. PLEURA: No pleural effusion or thickening. HEART AND PERICARDIUM: Heart is normal in size. Trace pericardial effusion. Mild coronary artery calc ifications present. MEDIASTINUM AND HORACE: No mediastinal or hilar lymphadenopathy or soft tissue mass. VESSELS: The thoracic aorta is normal in course and caliber. CHEST WALL AND DIAPHRAGM: Surgical clips and dystrophic calcifications within the right medial breast . LOWER NECK: Normal. UPPER ABDOMEN: Gastric fundus diverticulum. Nonobstructive right renal 8 mm calculus. MUSCULOSKELETAL: No acute fracture. Moderate degenerative changes are present in the thoracic spine. IMPRESSION: 1. Mild COPD changes without evidence for interstitial lung disease. 2. Nonobstructive right renal calculus. 3. Trace pericardial effusion. Adnexa and 4. Gastric fundus diverticulum.
== END | disposition home or self-care (01) ==
LOC: RADCTMAIN 12:17
PROVIDERS: ATTEND Internal Medicine Critical Care Medicine
DX: J44.9 Chronic obstructive pulmonary disease, unspecified (principal); I31.39 Other pericardial effusion (noninflammatory); N20.0 Calculus of kidney; K31.4 Gastric diverticulum
CPT/HCPCS: 71250

== ENCOUNTER → 2023-02-23 | Outpatient (CLI) | payer MEDICARE ==
--- NOTE | 2023-02-23 10:42 | XR ---
EXAMINATION TYPE: XR shoulder complete LT DATE OF EXAM: 02/23/2023 CLINICAL HISTORY: Pain for several weeks TECHNIQUE: Three views of the left shoulder are obtained. COMPARISON: None. FINDINGS: There is no acute fracture/dislocation evident in the left shoulder. Moderate narrowing at the acromioclavicular joint. Moderate to severe narrowing at the glenohumeral joint with mild to mo derate inferior spurring. The visualized ribs are intact . IMPRESSION: As above.
== END | disposition home or self-care (01) ==
LOC: RADXRYALE 10:21
PROVIDERS: ATTEND Physician Assistant Medical
DX: M25.512 Pain in left shoulder (principal)

== ENCOUNTER → 2023-04-16 | Outpatient (CLI) | payer MEDICARE ==
--- NOTE | 2023-04-18 08:40 | CA ---
Transthoracic Echo Report Name: Eileen Díaz Age: 77 Gender: F : 1945 Exam Date: 04/16/2023 14:43 Exam Location: [place] [facility] Ht (in): 64 Wt (lb): 192 Ordering Physician: Dario Gallegos MD Attending/Referring Phys: Private Duty Aide Meli Roper RDCS Procedure CPT: Indications: J44.9 Cardiac Hx: Technical Quality: Poor Contrast 1: Total Dose (mL): Contrast 2: Total Dose (mL): MEASUREMENTS (Male / Female) Normal Values 2D ECHO LV Diastolic Diameter PLAX 3.1 cm 4.2 - 5.9 / 3.9 - 5.3 cm LV Systolic Diameter PLAX 2.2 cm IVS Diastolic Thickness 1.3 cm 0.6 - 1.0 / 0.6 - 0.9 cm LVPW Diastolic Thickness 1.3 cm 0.6 - 1.0 / 0.6 - 0.9 cm LV Relative Wall Thickness 0.9 RV Internal Dim ED PLAX 3.3 cm LA Systolic Diameter LX 3.4 cm 3.0 - 4.0 / 2.7 - 3.8 cm LV Diastolic Volume MOD 4C 71.8 cm??? LV Systolic Volume MOD 4C 32.2 cm??? LV Ejection Fraction MOD 4C 55.1 % LV Cardiac Index MOD 4C 1629.8 cm???/min???m??? LV Diastolic Length 4C 7.8 cm LV Systolic Length 4C 6.5 cm LV Diastolic Volume MOD 2C 75.5 cm??? LV Systolic Volume MOD 2C 34.6 cm??? LV Ejection Fraction MOD 2C 54.2 % LV Cardiac Index MOD 2C 1682.5 cm???/min???m??? LV Diastolic Length 2C 7.5 cm LV Systolic Length 2C 6.1 cm LA Volume 29.3 cm??? 18 - 58 / 22 - 52 cm??? M-MODE Aortic Root Diameter MM 2.5 cm MV E Point Septal Separation 0.3 cm AV Cusp Separation MM 1.9 cm DOPPLER AV Peak Velocity 143.1 cm/s AV Peak Gradient 8.2 mmHg MV Area PHT 1.9 cm??? Mitral E Point Velocity 65.9 cm/s Mitral A Point Velocity 82.6 cm/s Mitral E to A Ratio 0.8 MV Deceleration Time 394.2 ms MV E' Velocity 10.4 cm/s Mitral E to MV E' Ratio 6.3 TR Peak Velocity 254.6 cm/s TR Peak Gradient 25.9 mmHg Right Ventricular Systolic Press 30.4 mmHg FINDINGS Left Ventricle Left ventricular ejection fraction is estimated at 55-60 %. Normal LV size and global systolic function. No obvious regional wall motion abnormality. Mild concentric LVH Right Ventricle Right ventricle not well visualized. Right Atrium Normal right atrial size. Left Atrium Normal left atrial size. Mitral Valve Structurally normal mitral valve. No mitral stenosis, regurgitation or prolapse. Aortic Valve Trileaflet aortic valve. No aortic valve stenosis or regurgitation. Tricuspid Valve Structurally normal tricuspid valve. Mild tricuspid regurgitation. Pulmonic Valve Structurally normal pulmonic valve. No pulmonic regurgitation. Pericardium No pericardial effusion. Aorta Normal size aortic root and proximal ascending aorta. CONCLUSIONS Normal LV size and systolic function. Estimated LVEF 55-60% Mild concentric LVH No regional wall motion abnormality No significant valvular dysfunction Overall normal chamber sizes No prior echo to compare with Previewed by: Dr Jamison Leiva (Electronically Signed) Final Date: 17 April 2023 10:06
== END | disposition home or self-care (01) ==
LOC: RADECHMAIN 14:35
PROVIDERS: ATTEND Internal Medicine Critical Care Medicine
DX: J44.9 Chronic obstructive pulmonary disease, unspecified (principal)
CPT/HCPCS: 93306

== ENCOUNTER → 2023-08-16 | Outpatient (CLI) | payer MEDICARE ==
--- NOTE | 2023-08-19 16:38 | MM ---
Reason for Exam: Screening (asymptomatic). Last screening mammogram was performed 12 month(s) ago. Patient History: Menarche at age 13. Patient has no children. Postmenopausal. Breast cancer, age 64. Estrogen for 2 years from age 54 until age 56. Progesterone, from age 54 until age 56. 05/20/2010, Lumpectomy on the Right side. 12/01/2015, Benign Core Biopsy on the right side. 05/20/2010, Malignant Excisional Biopsy on the right side. 05/09/2010, Malignant Core Biopsy on the right side. 2009, Radiation Therapy on the right side. Mother had breast cancer, age 30. Prior Study Comparison: 07/29/2020 Bilateral Diagnostic Mammogram, [facility]. 08/11/2021 Bilateral Diagnostic Mammogram, [facility]. 08/14/2022 Bilateral MG 3D screening mammo w/cad, [facility]. Tissue Density: There are scattered fibroglandular densities. Findings: Analyzed By CAD. Postsurgical and posttreatment change redemonstrated in the right breast. There is no suspicious group of microcalcifications or new suspicious mass in either breast. Overall Assessment: Benign, BI-RAD 2 Management: Screening Mammogram of both breasts in 1 year. . Patient should continue monthly self-breast exams. A clinical breast exam by your physician is recommended on an annual basis. This exam should not preclude additional follow-up of suspicious palpable abnormalities. Electronically signed and approved by: Dragan Lobo M.D. Radiologist
== END | disposition home or self-care (01) ==
LOC: RADMAMWWP 14:13
PROVIDERS: ATTEND Family Medicine
DX: Z12.31 Encounter for screening mammogram for malignant neoplasm of breast (principal); Z78.0 Asymptomatic menopausal state; Z80.3 Family history of malignant neoplasm of breast; Z85.3 Personal history of malignant neoplasm of breast
CPT/HCPCS: 77063; 77067

== ENCOUNTER 2024-07-18 07:49 | Day surgery (SDC) | payer MEDICARE ==
[~2024-07-18 07:49] MED LIST changes: -LACTATED RINGERS 1,000 ML IV SCH; +MIDAZOLAM 2 MG/2 ML VIAL IV PRN; +fentaNYL (PF) 50 MCG/ML 2 ML AMP IV PRN
[2024-07-18] MEDS: IV FLUID CONTINUATION 1,000 ML IV ONE (08:06)
[2024-07-18 08:33] LABS: Basophils # (A) 0.1 k/uL (0-0.2); Basophils % (A) 1 %; Eosinophils # (A) 0.1 k/uL (0-0.7); Eosinophils % (A) 1 %; HCT 41.9 % (34.0-46.0); HGB 12.8 gm/dL (11.4-16.0); Hypochromasia Marked; Lymphocytes # (A) 2.3 k/uL (1.0-4.8); Lymphocytes % (A) 26 %; MCH 30.9 pg (25.0-35.0); MCHC 30.6 g/dL (31.0-37.0); MCV 100.8 fL (80.0-100.0); Macrocytosis Slight; Mean Platelet Volume 7.4; Monocytes # (A) 0.5 k/uL (0-1.0); Monocytes % (A) 6 %; Neutrophils # (A) 5.5 k/uL (1.3-7.7); Neutrophils % (A) 63 %; Platelet Count 249 k/uL (150-450); RBC 4.16 m/uL (3.80-5.40); RDW 13.4 % (11.5-15.5); WBC 8.8 k/uL (3.8-10.6)
[2024-07-18] MEDS: LACTATED RINGERS 1,000 ML IV SCH (08:34)
[2024-07-18] MEDS: DEXAMETHASONE SOD PHOSPHATE 4 MG/ML 1 ML VIAL IV ONE (08:38)
[2024-07-18] MEDS: ONDANSETRON 4 MG/2 ML VIAL IVP ONE (08:38)
[2024-07-18 08:59] LABS: Albumin 4.4 g/dL (3.5-5.0); Chloride 108 mmol/L (98-107); Glucose 152 mg/dL (74-99); Potassium 4.9 mmol/L (3.5-5.1); Sodium 142 mmol/L (137-145)
[2024-07-18 09:01] LABS: ALT 23 U/L (4-34); AST 23 U/L (14-36); African American GFR (CKD) 40 (>60 ml/min/1.73 sqM); Alkaline Phosphatase 45 U/L (38-126); Anion Gap 9 mmol/L; Blood Urea Nitrogen 43 mg/dL (7-17); Calcium 9.6 mg/dL (8.4-10.2); Carbon Dioxide 25 mmol/L (22-30); Non-African American GFR(CKD) 35 (>60 ml/min/1.73 sqM); Total Bilirubin 0.3 mg/dL (0.2-1.3)
[2024-07-18] MEDS ORDERED: MIDAZOLAM 2 MG/2 ML VIAL ONE (09:45)
[2024-07-18] MEDS: ceFAZolin 1,000 MG in SODIUM CHLORIDE 0.9% 1,000 ML IRRIGATION ONE (10:10)
--- NOTE | 2024-07-18 10:30 | P.OP ---
Date of Procedure: 07/18/24 Preoperative Diagnosis: broken retained hardware right ankle Postoperative Diagnosis: same Procedure(s) Performed: removal of deep hardware right tibia Implants: none Anesthesia: spinal Surgeon: Domingo Johnson Estimated Blood Loss (ml): 5 Pathology: none sent Condition: stable Disposition: PACU Description of Procedure: The patient was brought into the operative is on table supine position. Spinal anesthesia was administered. The right leg was prepped and draped usual manner. Fluoroscopy was utilized to triangulate the location of the screw on AP and lateral views. Skin haas were made pinpoint the area of the screw. A small incision was made along the medial aspect of the tibia. It was bluntly dissected down to the tibia. A 5 mm trephine was used to bore a hole around the screw. The trephine was advanced to the lateral cortex of the tibia that was removed. The skin was retracted and the screw was able to be visualized and the hole made by the trephine. It was grasped with a pliers and removed intact without complication. Fluoroscopy confirmed the removal of the screw. The wound is thoroughly irrigated with antibiotic saline. The skin was closed with 3-0 nylon. Nonadherent gauze and a dry sterile dressing applied the right ankle. The patient tolerated above procedure and anesthesia well which recovery vital signs stable
[2024-07-18 10:36] VITALS: TEMP 97.9
--- NOTE | 2024-07-18 11:12 | FL ---
EXAMINATION TYPE: FL guidance operating room, XR ankle complete RT DATE OF EXAM: 07/18/2024 10:30 AM COMPARISON: Pre Operative Images if available both CT/MRI or plain film CLINICAL INDICATION: Female, 79 years old with history of Hardware Removal; TECHNIQUE: FL guidance operating room, XR ankle complete RT, multiple fluoroscopic images provided fo r procedure. Total fluoroscopy time: 29 seconds Total submitted images to PACS: 4 DAP: 0.5006 mGym2 Gycm2 uGym2 cGycm2 or equivalent. FINDINGS: Fluoroscopic images during internal fixation/arthroplasty demonstrate fixation hardware in appropriat e position. Hardware appears intact. No immediate complication identified. IMPRESSION: 1. No evidence for intraoperative complication. 2. Please see the operative/procedural note for further details. [facility], , 07/18/2024 11:09 AM
[2024-07-18 12:00] VITALS: RESP 16
[2024-07-18 12:03] VITALS: BP 132/72; PULSE 93
== END 2024-07-18 12:25 | disposition home or self-care (01) ==
LOC: OR 07:49
PROVIDERS: ATTEND Podiatrist
CPT/HCPCS: 80053; 85025

== ENCOUNTER → 2024-08-22 | Outpatient (CLI) | payer MEDICARE ==
--- NOTE | 2024-08-25 18:11 | MM ---
Reason for Exam: Screening (asymptomatic). Last screening mammogram was performed 12 month(s) ago. Patient History: Menarche at age 13. Patient has no children. Postmenopausal. Breast cancer, age 64. Estrogen for 2 years from age 54 until age 56. Progesterone, from age 54 until age 56. 05/20/2010, Lumpectomy on the Right side. 12/01/2015, Benign Core Biopsy on the right side. 05/20/2010, Malignant Excisional Biopsy on the right side. 05/09/2010, Malignant Core Biopsy on the right side. 2009, Radiation Therapy on the right side. Mother had breast cancer, age 30. Prior Study Comparison: 08/11/2021 Bilateral Diagnostic Mammogram, [facility]. 08/14/2022 Bilateral MG 3D screening mammo w/cad, [facility]. 08/16/2023 Bilateral MG 3D screening mammo w/cad, [facility]. Tissue Density: There are scattered areas of fibroglandular density. Findings: Analyzed By CAD. Postsurgical and posttreatment change right breast. There is no suspicious group of microcalcifications or new suspicious mass in either breast. Overall Assessment: Benign, BI-RAD 2 Management: Screening Mammogram of both breasts in 1 year. . Patient should continue monthly self-breast exams. A clinical breast exam by your physician is recommended on an annual basis. This exam should not preclude additional follow-up of suspicious palpable abnormalities. [facility], , 08/25/2024 6:08 PM. Electronically signed and approved by: Dragan Lobo M.D. Radiologist
== END | disposition home or self-care (01) ==
LOC: RADMAMWWP 13:52
PROVIDERS: ATTEND Family Medicine
DX: Z12.31 Encounter for screening mammogram for malignant neoplasm of breast (principal); Z78.0 Asymptomatic menopausal state; Z85.3 Personal history of malignant neoplasm of breast; Z80.3 Family history of malignant neoplasm of breast; R92.323 Mammographic fibroglandular density, bilateral breasts
CPT/HCPCS: 77063; 77067

== ENCOUNTER 2025-03-25 09:40 | Day surgery (SDC) | payer MEDICARE ==
[2025-03-24 12:10] VITALS: BMI 33.3
[2025-03-25 11:00] VITALS: TEMP 96.4
[2025-03-25] MEDS: IV FLUID CONTINUATION 1,000 ML IV ONE (11:00)
[2025-03-25] MEDS: LACTATED RINGERS 1,000 ML IV SCH (11:00)
[2025-03-25 11:06] LABS: Glucose,Whole Blood 115 mg/dL (70-110)
[2025-03-25] MEDS ORDERED: LIDOCAINE 1% INJ 10MG/ML (20 ML MDV) ONE (11:27)
[2025-03-25] MEDS ORDERED: PROPOFOL 10 MG/ML 20 ML VIAL IV ONE (11:27)
--- NOTE | 2025-03-25 11:45 | P.PCN ---
Date of Procedure: 03/25/25 Procedure(s) Performed: BRIEF HISTORY: Patient is a 79-year-old pleasant white female scheduled for an elective colonoscopy as a part of screening for history of colon polyps. Last colonoscopy was 3 years ago and was noted to have a tubular adenoma. PROCEDURE PERFORMED: Colonoscopy with snare polypectomy. PREOPERATIVE DIAGNOSIS: Screening for history of colon polyps. IV sedation per Anesthesia. PROCEDURE: After informed consent was obtained, the patient, was brought into the endoscopy unit. IV sedation was administered by Anesthesia under continuous monitoring. Digital rectal examination was normal. Initially the Olympus CF-160 flexible video colonoscope was then inserted in the rectum, gradually advanced into the cecum without any difficulty. Careful examination was performed as the scope was gradually being withdrawn. Ileocecal valve and the appendiceal orifice were visualized and appeared normal. Prep was excellent. Mucosa of the cecum, ascending colon, transverse colon, descending colon, appeared normal. The distal sigmoid colon there was a 3 mm and 5 mm sessile polyps removed by cold snare polypectomy. Scattered sigmoid diverticulosis seen. Rest of the sigmoid colon, and rectum appeared normal. Retroflexion was performed in the rectum and no lesions were seen. The patient tolerated the procedure well. IMPRESSION: 3 mm and 5 mm distal sigmoid colon polyp status post cold snare polypectomy Scattered sigmoid diverticulosis RECOMMENDATIONS: Findings of this examination were discussed with the patient as well as her family. She was advised to follow-up with the biopsy results. Continue with a high-fiber diet.
[2025-03-25 12:07] VITALS: BP 124/84; PULSE 83; RESP 18
== END 2025-03-25 12:29 | disposition home or self-care (01) ==
LOC: ORWHC2ENDO 09:40
PROVIDERS: ATTEND Internal Medicine Gastroenterology
DX: Z12.11 Encounter for screening for malignant neoplasm of colon (principal); K63.5 Polyp of colon; K57.30 Diverticulosis of large intestine without perforation or abscess without bleeding; I10 Essential (primary) hypertension; E78.5 Hyperlipidemia, unspecified; J44.9 Chronic obstructive pulmonary disease, unspecified; E07.9 Disorder of thyroid, unspecified; N28.9 Disorder of kidney and ureter, unspecified; Z86.0101 Personal history of adenomatous and serrated colon polyps; Z79.51 Long term (current) use of inhaled steroids; Z79.890 Hormone replacement therapy; Z79.899 Other long term (current) drug therapy; Z88.5 Allergy status to narcotic agent; Z88.8 Allergy status to other drugs, medicaments and biological substances
CPT/HCPCS: 88305; 45385; J2003; J2704